=== PATIENT | male | born 1950 | race Hispanic/Latino ===

== ENCOUNTER 2016-11-17 21:40 | Inpatient (IN) | payer OTHER, MEDICARE ==
--- NOTE | 2016-11-17 21:48 | C.PDOC ---
History Of Present Illness Pt presents with a c.o of chest pain that began after dinner. Pt took train home and continued to have chest discomfort. Pt states pain is radiating down left arm. Pt denies any shortness of breath, nausea, vomiting,. No f/c Time Seen by Provider: 11/17/16 21:47 Chief Complaint (Nursing): Chest Pain History Per: Patient History/Exam Limitations: no limitations Onset/Duration Of Symptoms: Hrs Current Symptoms Are (Timing): Still Present Context: Other Severity: Moderate Pain Scale Rating Of: 4 Quality: Dull, Aching, Tightness Associated Symptoms: denies: Nausea, Other (Shortness of breath. Nausea. Vomiting) Exacerbating Factors: Exertion Alleviating Factors: None Recent travel outside of the [place]: No Additional History Per: Patient Past Medical History Reviewed: Historical Data, Nursing Documentation, Vital Signs Vital Signs: Last Vital Signs Temp 98 F 11/17/16 21:44 Pulse 76 11/17/16 23:43 Resp 16 11/17/16 23:43 BP 140/94 H 11/17/16 23:43 Pulse Ox 99 11/17/16 23:43 - Medical History PMH: HTN Family History: States: No Known Family Hx Review Of Systems Constitutional: Negative for: Fever, Chills ENT: Negative for: Mouth Swelling Cardiovascular: Positive for: Chest Pain (Radiating down left arm) Respiratory: Negative for: Shortness of Breath Gastrointestinal: Negative for: Nausea, Vomiting Musculoskeletal: Negative for: Back Pain Skin: Negative for: Rash, Lesions, Jaundice, Bruising Neurological: Negative for: Weakness Psych: Negative for: Anxiety Physical Exam - Physical Exam Appears: Non-toxic, No Acute Distress Skin: Warm, Dry Head: Normacephalic Eye(s): bilateral: Normal Inspection Oral Mucosa: Moist Neck: Supple Chest: Symmetrical, No Tenderness, Other (4/10 pain. ) Cardiovascular: Rhythm Regular Respiratory: No Rales, No Rhonchi, No Wheezing Gastrointestinal/Abdominal: Soft, No Tenderness, No Distention Back: Normal Inspection Extremity: Normal ROM Extremity: Bilateral: Atraumatic, Normal Color And Temperature Neurological/Psych: Oriented x3, Normal Speech, Normal Cognition Gait: Steady ED Course And Treatment - Laboratory Results Result Diagrams: 11/17/16 22:01 11/17/16 22:01 ECG Rhythm: Sinus Rhythm (85), 1st Degree HB, R BBB, Nonspecific Changes O2 Sat by Pulse Oximetry: 98 Pulse Ox Interpretation: Normal - Radiology CXR: Interpreted by Me, Viewed By Me CXR Interpretation: No: Infiltrates, Fracture, Pnemothorax Progress Note: cardiac work up , asa. 11:13 PM Pt with more chest pain. repeating ekg -. nsr 73 bpm ac anterolat mi. spoke with dr matthew tellez heart activated Critical Care Time - Critical Care Note Total Time (in mins): 47 Documented critical care: time excludes all time spent performing seperately billable procedures. Disposition Discussed With Dr.: Julito Huggins Comment: accepted the pt on his service and took over the care at 10:46 PM Doctor Will See Patient In The: Hospital Counseled Patient/Family Regarding: Studies Performed, Diagnosis - Disposition Disposition: HOSPITALIZED Disposition Time: 21:48 Condition: GUARDED - POA Present On Arrival: Poor Glycemic Control - Clinical Impression Clinical Impression: Chest pain, Acute myocardial infarction - Scribe Statement The provider has reviewed the documentation as recorded by the Scribe Magnus Padilla All medical record entries made by the Lichaibe were at my direction and personally dictated by me. I have reviewed the chart and agree that the record accurately reflects my personal performance of the history, physical exam, medical decision making, and the department course for this patient. I have also personally directed, reviewed, and agree with the discharge instructions and disposition. Decision To Admit - Pt Status Changed To: Hospital Disposition Of: Inpatient - Admit Certification Admit to Inpatient:: After my assessment, the patient will require hospitalization for at least two midnights. This is because of the severity of symptoms shown, intensity of services needed, and/or the medical risk in this patient being treated as an outpatient. - InPatient: Physician Admission Certification: I certify that this patient requires 2 or more midnights of care for the following reason:: After my assessment, the patient will require hospitalization for at least two midnights. This is because of the severity of symptoms shown, intensity of services needed, and/or the medical risk in this patient being treated as an outpatient. - . Bed Request Type: Telemetry Admitting Physician: Julito Huggins Patient Diagnosis: Chest pain, Acute myocardial infarction
[2016-11-17] MEDS ORDERED: Aspirin 325 mg EC Tablets PO STA (21:57)
[2016-11-17 22:07] LABS: BASO # 0.1 K/uL (0.0-0.2); BASO % 0.8 % (0.0-2.0); EOS # 0.1 K/uL (0.0-0.7); EOS % 1.3 % (0.0-4.0); HEMATOCRIT 42.9 % (35.0-51.0); LYMPH # 2.1 K/uL (1.0-4.3); LYMPH % 28.9 % (20.0-40.0); MEAN CELL VOLUME 83.4 fL (80.0-94.0); MEAN CORPUSCULAR HEMOGLOBIN 28.6 pg (27.0-31.0); MEAN CORPUSCULAR HGB CONC 34.3 g/dL (33.0-37.0); MEAN PLATELET VOLUME 7.3 fL (7.2-11.7); MONO # 0.8 K/uL (0.0-0.8); MONO % 10.6 % (0.0-10.0); NRBC % 0.1 % (0.0-2.0); RED CELL DISTRIBUTION WIDTH 13.6 % (11.5-14.5); WHITE BLOOD COUNT 7.1 K/uL (4.8-10.8)
[2016-11-17 22:15] LABS: CHLORIDE 98 mmol/L (98-107); SODIUM 141 mmol/L (132-148)
[2016-11-17 22:16] LABS: INR 1.1; POTASSIUM 3.8 mmol/L (3.6-5.2)
[2016-11-17 22:18] LABS: ALB/GLOB RATIO 1.3 (1.0-2.1); ALKALINE PHOSPHATASE 82 U/L (38-126); ALT/SGPT 48 U/L (21-72); AST/SGOT 45 U/L (17-59); BILIRUBIN,TOTAL 0.7 mg/dL (0.2-1.3); BLOOD UREA NITROGEN 20 mg/dL (9-20); CARBON DIOXIDE 25 mmol/L (22-30); GFR AFRICAN-AMERICAN > 60; GLUCOSE,RANDOM 187 mg/dL (75-110); TOTAL PROTEIN 7.9 g/dL (6.3-8.3)
[2016-11-17 22:19] LABS: CALCIUM 9.1 mg/dl (8.6-10.4)
[2016-11-17] MEDS ORDERED: Nitroglycerin 2% Ointment Foilpak UD TOP STA (22:49)
[2016-11-17] MEDS ORDERED: Morphine 4 MG/ML VIAL ONE (22:54)
[2016-11-17] MEDS ORDERED: Nitroglycerin 2% Ointment Foilpak UD TOP ONE (22:54)
[2016-11-17] MEDS ORDERED: Sodium Chloride 0.9% 1,000 ML ONE (23:06)
--- NOTE | 2016-11-17 23:16 | CP.PCM.HP ---
Past Patient History - Past Social History Smoking Status: Never Smoked - CARDIAC Hx Hypertension: Yes - RENAL Hx Kidney Stones: Yes - GASTROINTESTINAL Hx Fatty Liver Disease: Yes Other/Comment: fatty spleen - PSYCHIATRIC Hx Substance Use: No - SURGICAL HISTORY Hx Cholecystectomy: Yes Meds Allergies/Adverse Reactions: Allergies Allergy/AdvReac Type Severity Reaction Status Date / Time No Known Allergies Allergy Unverified 11/17/16 21:55 Results - Vital Signs Recent Vital Signs: Last Vital Signs Temp 98 F 11/17/16 21:44 Pulse 77 11/17/16 23:08 Resp 16 11/17/16 23:08 BP 148/95 H 11/17/16 23:08 Pulse Ox 92 L 11/17/16 23:08 - Labs Result Diagrams: 11/17/16 22:01 11/17/16 22:01
[2016-11-17] MEDS ORDERED: Heparin25000 units/250ml 1/2NS 250 ML IV PRN (23:25)
[2016-11-17] MEDS ORDERED: Iodixanol 320 mg/ml 150 ml Bottle IV ONE (23:52)
[2016-11-18] MEDS ORDERED: Midazolam 2 MG/2 ML VIAL ONE (00:06)
--- NOTE | 2016-11-18 00:51 | CP.PCM.CON ---
History of Present Illness - History of Present Illness History of Present Illness: Patient is a 66 year old male with a history of HTN, DM who presents with chest pain. The patient developed diaphoresis one day prior to admission. He was out to dinner with friends and developed chest pressure. He described substernal discomfort, and was noted to have dyspnea. He took the [employer] train to [place], and developed worsening chest pressure. He was originally brought to [facility] ER, and EKG showed evidence of lateral ischemia but no ST segment elevation. At 11:13 pm, the patient developed nausea and repeat EKG showed ST segment elevation in the anterior leads. Code heart was activated. Review of Systems - Constitutional Constitutional: absent: As Per HPI, Anorexia, Chills, Daytime Sleepiness, Excessive Sweating, Fatigue, Fever, Frequent Falls, Headache, Increased Appetite , Lethargy, Malaise, Night Sweats, Snoring, Sleep Apnea, Weight Gain, Weight Loss, Weakness, Other - EENT Eyes: absent: As Per HPI, Blind Spots, Blurred Vision, Change in Vision, Decreased Night Vision, Diplopia, Discharge, Dry Eye, Exophthalmos, Floaters, Irritation, Itchy Eyes, Loss of Peripheral Vision, Pain, Photophobia, Requires Corrective Lenses, Sees Flashes, Spots in Vision, Tunnel Vision, Other Visual Disturbances, Loss of Vision, Other Nose/Mouth/Throat: absent: As Per HPI, Epistaxis, Nasal Congestion, Nasal Discharge, Nasal Obstruction, Nasal Trauma, Nose Pain, Post Nasal Drip, Sinus Pain, Sinus Pressure, Bleeding Gums, Change in Voice, Dental Pain, Dry Mouth, Dysphagia, Halitosis, Hoarsness, Lip Swelling, Mouth Lesions, Mouth Pain, Odynophagia, Sore Throat, Throat Swelling, Tongue Swelling, Facial Pain, Neck Pain, Neck Mass, Other - Cardiovascular Cardiovascular: Chest Pain, Chest Pain at Rest, Dyspnea, Pain Radiating to Arm/ Neck/Jaw - Respiratory Respiratory: Dyspnea - Gastrointestinal Gastrointestinal: absent: As Per HPI, Abdominal Pain, Belching, Bloating, Change in Bowel Habits, Change in Stool Character, Coffee Ground Emesis, Constipation, Cramping, Diarrhea, Dyspepsia, Dysphagia, Early Satiety, Excessive Flatus, Fecal Incontinence, Heartburn, Hematemesis, Hematochezia, Loose Stools, Melena, Nausea, Odynophagia, Temesmus, Vomiting, Other - Genitourinary Genitourinary: absent: As Per HPI, Change in Urinary Stream, Difficulty Urinating, Dysuria, Flank Pain, Hematuria, Pyuria, Nocturia, Urinary Incontinence, Urinary Frequency, Urinary Hesitance, Urinary Urgency, Voiding Freq/Small Amts, Freq UTI, Hx Renal/Bladder Calculi, Hx /Renal Surgery, Bladder Distension, Other - Musculoskeletal Musculoskeletal: absent: As Per HPI, Abnormal Gait, Arthralgias, Atrophy, Back Pain, Deformity, Joint Swelling, Limited Range of Motion, Loss of Height, Muscle Cramps, Muscle Weakness, Myalgias, Neck Pain, Numbness, Radiating Pain into Limb, Stiffness, Tingling, Other - Integumentary Integumentary: absent: As Per HPI, Acne, Alopecia, Bleeding Lesions, Change in Hair, Change in Nails, Change in Pigmentation, Changing Lesions, Dry Skin, Erythema, Furuncle, Hirsutism, Lesions, New Lesions, Non-Healing Lesions, Photosensitivity, Pruritus, Rash, Skin Pain, Skin Ulcer, Sores, Striae, Swelling , Unusual Bruising, Wounds, Jaundice, Other - Neurological Neurological: absent: As Per HPI, Abnormal Gait, Abnormal Hearing, Abnormal Movements, Abnormal Speech, Behavioral Changes, Burning Sensations, Confusion, Convulsions, Disequilibrium, Dizziness, Numbness, Focal Weakness, Frequent Falls , Headaches, Lack of Coordination, Loss of Vision, Memory Loss, Paresthesias, Radicular Pain, Restless Legs, Sensory Deficit, Syncope, Tingling, Tremor, Vertigo, Weakness, Other Visual Disturbances, Other - Psychiatric Psychiatric: absent: As Per HPI, Abnormal Sleep Pattern, Anhedonia, Anxiety, Auditory Hallucinations, Behavioral Changes, Change in Appetite, Change in Libido, Confusion, Depression, Difficulty Concentrating, Hallucinations, Homicidal Ideation, Hopelessness, Irritability, Memory Loss, Mood Swings, Panic Attacks, Paranoia, Suicidal Ideation, Visual Hallucinations, Tactile Hallucinations, Other - Endocrine Endocrine: absent: As Per HPI, Change in Body Appearance, Change in Libido, Cold Intolorance, Deepening of Voice, Excessive Sweating, Fatigue, Flushing, Heat Intolorance, Increase in Ring/Shoe/Hat Size, Palpitations, Polydipsia, Polyphagia, Polyuria, Other - Hematologic/Lymphatic Hematologic: absent: As Per HPI, Easy Bleeding, Easy Bruising, Lymphadenopathy, Other Past Patient History - Past Social History Smoking Status: Never Smoked - CARDIAC Hx Hypertension: Yes - RENAL Hx Kidney Stones: Yes - GASTROINTESTINAL Hx Fatty Liver Disease: Yes Other/Comment: fatty spleen - PSYCHIATRIC Hx Substance Use: No - SURGICAL HISTORY Hx Cholecystectomy: Yes Meds Allergies/Adverse Reactions: Allergies Allergy/AdvReac Type Severity Reaction Status Date / Time No Known Allergies Allergy Unverified 11/17/16 21:55 - Medications Medications: Current Medications Clopidogrel Bisulfate (Plavix) 75 mg PO DAILY [facility] Enoxaparin Sodium (Lovenox) 40 mg SC DAILY [facility] Home Med (Aspirin) 81 mg PO DAILY [facility] Home Med (Irbesartan) 75 mg PO DAILY [facility] Heparin Sodium/Sodium Chloride (Heparin 65120 Units/250ml 1/2 Normal Saline) 250 mls @ 6 mls/hr IV .Q24H PRN; Protocol PRN Reason: PROTOCOL Last Admin: 11/18/16 00:13 Dose: 6 mls/hr Pantoprazole Sodium (Protonix Ec Tab) 40 mg PO DAILY [facility] Physical Exam - Constitutional Appears: Non-toxic - Head Exam Head Exam: NORMAL INSPECTION - Eye Exam Eye Exam: Normal appearance - ENT Exam ENT Exam: Mucous Membranes Moist - Neck Exam Neck exam: Positive for: Full Rom - Respiratory Exam Respiratory Exam: Clear to Auscultation Bilateral - Cardiovascular Exam Cardiovascular Exam: REGULAR RHYTHM - GI/Abdominal Exam GI & Abdominal Exam: Normal Bowel Sounds - Rectal Exam Rectal Exam: Deferred - Extremities Exam Extremities exam: Positive for: normal inspection - Back Exam Back exam: NORMAL INSPECTION - Neurological Exam Neurological exam: Alert - Psychiatric Exam Psychiatric exam: Normal Affect - Skin Skin Exam: Normal Color Results - Vital Signs Recent Vital Signs: Last Vital Signs Temp 98 F 11/17/16 21:44 Pulse 76 11/17/16 23:43 Resp 16 11/17/16 23:43 BP 140/94 H 11/17/16 23:43 Pulse Ox 98 11/18/16 00:08 - Labs Result Diagrams: 11/19/16 06:36 11/19/16 06:36 Labs: Laboratory Results - last 24 hr 11/17/16 23:49 Blood Type O POSITIVE Antibody Screen Negative - EKG Data EKG Interpreted by: Myself EKG shows normal: Sinus rhythm - EKG Data Interpretation: Acute Ischemia Assessment & Plan (1) Acute myocardial infarction Assessment and Plan: patient has EKG consistet with anterior wall myocardial infarction. The patient will need urgent cardiac catheteriaiton for further evaluation. Risks and benefits were discussed with the patient. He agrees to proceed. Status: Acute (2) HTN (hypertension) Assessment and Plan: will manage after the procedure. Status: Acute
--- NOTE | 2016-11-18 00:54 | PCM.SURG1 ---
Surgeon's Initial Post Op Note - Surgeon's Notes Surgeon: Kevin Barnes MD Bilingual Case Manager: Antonio Cordero Type of Anesthesia: IV Sedation Pre-Operative Diagnosis: AMI Operative Findings: mid LAD throbmbotic 99% occlusion CATHY II flow. LPDA 95% proximal. LVEF 50% Post-Operative Diagnosis: CAD Operation Performed: CHACHA mid LAD Specimen/Specimens Removed: none Estimated Blood Loss: EBL {In ML}: 0 Date of Surgery/Procedure: 11/17/16 Time of Surgery/Procedure: 23:55
[2016-11-18] MEDS ORDERED: Sodium Chloride 0.9% 1,000 ML IV SCH (01:00)
--- NOTE | 2016-11-18 01:31 | CP.PCM.CON ---
History of Present Illness - History of Present Illness History of Present Illness: 66 YOM with h/o HTN, had a chest pain , substernal after he had dinner at a [employer] restaurant. Pain continued when he was riding path train to [place] and got worst when he got out of train. Radiated to left arm, intensity ws 8-05/23, with some SOB. In ER had STEMI, cose heart was activated, Dr Herbert, senior systems developer took him to medical lab scientist and put a stent in LAD. Now pain free, slightly low BP but no sob, , feeling good now. Review of Systems - Review of Systems Systems not reviewed;Unavailable: Unstable Vital Signs - Constitutional Constitutional: As Per HPI - EENT Eyes: As Per HPI Nose/Mouth/Throat: As Per HPI - Cardiovascular Cardiovascular: Chest Pain, Dyspnea on Exertion - Respiratory Respiratory: Dyspnea - Gastrointestinal Gastrointestinal: As Per HPI Past Patient History - Past Social History Smoking Status: Never Smoked - CARDIAC Hx Cardiac Disorders: No Hx Hypertension: Yes - PULMONARY Hx Respiratory Disorders: No - NEUROLOGICAL Hx Neurological Disorder: No - HEENT Hx HEENT Problems: No - RENAL Hx Chronic Kidney Disease: No Hx Kidney Stones: Yes - GASTROINTESTINAL Hx Fatty Liver Disease: Yes Other/Comment: fatty spleen - PSYCHIATRIC Hx Substance Use: No - SURGICAL HISTORY Hx Cholecystectomy: Yes Meds Allergies/Adverse Reactions: Allergies Allergy/AdvReac Type Severity Reaction Status Date / Time No Known Allergies Allergy Unverified 11/17/16 21:55 - Medications Medications: Current Medications Aspirin (Ecotrin) 81 mg PO DAILY [facility] Docusate Sodium (Colace) 100 mg PO BID [facility] Sodium Chloride (Sodium Chloride 0.9%) 1,000 mls @ 75 mls/hr IV .[id number] [facility] Stop: 11/18/16 06:00 Metoprolol Tartrate (Lopressor) 12.5 mg PO BID [facility] Pantoprazole Sodium (Protonix Ec Tab) 40 mg PO DAILY [facility] Rosuvastatin Calcium (Crestor) 10 mg PO HS [facility] Ticagrelor (Brilinta) 90 mg PO BID [facility] Physical Exam - Head Exam Head Exam: ATRAUMATIC - Eye Exam Eye Exam: Normal appearance - ENT Exam ENT Exam: Mucous Membranes Moist - Neck Exam Neck exam: Positive for: Full Rom - Respiratory Exam Respiratory Exam: NORMAL BREATHING PATTERN - GI/Abdominal Exam GI & Abdominal Exam: Normal Bowel Sounds Results - Vital Signs Recent Vital Signs: Last Vital Signs Temp 98 F 11/17/16 21:44 Pulse 76 11/17/16 23:43 Resp 16 11/17/16 23:43 BP 140/94 H 11/17/16 23:43 Pulse Ox 98 11/18/16 00:56 - Labs Result Diagrams: 11/17/16 22:01 11/17/16 22:01 Labs: Laboratory Results - last 24 hr 11/17/16 23:49 Blood Type O POSITIVE Antibody Screen Negative - EKG Data EKG Interpreted by: Myself (ST seg elevation in ant-lateral leads) EKG shows normal: Sinus rhythm, ST-T waves - EKG Data When Compared to Previous EKG: Significant Changes Interpretation: Acute Ischemia Assessment & Plan - Assessment and Plan (Free Text) Assessment: STEMI HTN DM Plan: Admit to ICu Brilanta 90 mg po bid [facility] Metorolol 12.5 mg BID NS at 75 cc/h Lovenox 40 mg s/q daily Pantaprozole
--- NOTE | 2016-11-18 04:14 | CP.PCM.PN ---
Subjective - Date & Time of Evaluation Date of Evaluation: 11/18/16 Time of Evaluation: 04:05 - Subjective Subjective: House Doctor Note CODE HEART TIME: 11:19 PM Patient is a 66 M with medical history significant for hypertension and hyperlipidemia who presented to the emergency department with chest pain. Patient reports he was in [facility] and had just finished eating a large steak dinner when he suddenly developed sharp 8.5/10 intensity chest pain to his sternum which radiated to his left arm. Patient admits to associated nausea and diaphoresis. Initial blood pressure was elevated 160/100 and patient was given ASA 325 mg po, Morphine 6 mg IVP and nitro paste, which improved pressure to 140 /90. Troponin was positive 0.2350 and patient was admitted for NSTEMI as initial EKG did not show ST elevations. Later during emergency room course, patient had an episode of emesis and repeat EKG was significant for ST elevations to V2-6. Code heart was called. Patient was given Brilinta 180 mg po , Heparin 5,000 U bolus and started on Heparin drip. Patient has family history significant for cardiac disease as his mother from coronary complications and brother had coronary stents placed in his early 60s. Patient is a never smoker and denies alcohol and illicit drug use. Objective - Vital Signs/Intake and Output Vital Signs (last 24 hours): Temp Pulse Resp BP Pulse Ox 98.2 F 91 H 15 105/72 96 11/18/16 01:05 11/18/16 02:00 11/18/16 02:00 11/18/16 02:00 11/18/16 02:00 Intake and Output: 11/17/16 11/18/16 18:59 06:59 Intake Total 255 Output Total 0 Balance 255 - Medications Medications: Current Medications Aspirin (Ecotrin) 81 mg PO DAILY [facility] Docusate Sodium (Colace) 100 mg PO BID [facility] Enoxaparin Sodium (Lovenox) 40 mg SC DAILY [facility] Sodium Chloride (Sodium Chloride 0.9%) 1,000 mls @ 75 mls/hr IV .[id number] [facility] Stop: 11/18/16 06:00 Last Admin: 11/18/16 01:30 Dose: 75 mls/hr Metoprolol Tartrate (Lopressor) 12.5 mg PO BID [facility] Pantoprazole Sodium (Protonix Ec Tab) 40 mg PO DAILY [facility] Rosuvastatin Calcium (Crestor) 10 mg PO HS [facility] Ticagrelor (Brilinta) 90 mg PO BID [facility] - Labs Labs: PT 12.0 SECONDS (9.7-12.2) 11/17/16 22:01 INR 1.1 11/17/16 22:01 APTT 30 SECONDS (21-34) 11/17/16 22:01 - Constitutional Appears: No Acute Distress - Head Exam Head Exam: ATRAUMATIC, NORMAL INSPECTION, NORMOCEPHALIC - Eye Exam Eye Exam: EOMI, Normal appearance, PERRL - ENT Exam ENT Exam: Mucous Membranes Moist - Respiratory Exam Respiratory Exam: Clear to Ausculation Bilateral, NORMAL BREATHING PATTERN. absent: Rales, Rhonchi, Wheezes - Cardiovascular Exam Cardiovascular Exam: +S1, +S2. absent: Tachycardia - GI/Abdominal Exam GI & Abdominal Exam: Soft, Normal Bowel Sounds. absent: Distended, Guarding, Tenderness - Extremities Exam Extremities Exam: Normal Inspection. absent: Pedal Edema, Tenderness - Neurological Exam Neurological Exam: Alert, Awake, Oriented x3 - Psychiatric Exam Psychiatric exam: Normal Affect, Normal Mood - Skin Skin Exam: Intact, Normal Color
[2016-11-18 06:39] LABS: BASO # 0.1 K/uL (0.0-0.2); BASO % 0.8 % (0.0-2.0); EOS % 0.1 % (0.0-4.0); HEMATOCRIT 41.1 % (35.0-51.0); LYMPH # 1.4 K/uL (1.0-4.3); LYMPH % 13.5 % (20.0-40.0); MEAN CELL VOLUME 84.7 fL (80.0-94.0); MEAN CORPUSCULAR HEMOGLOBIN 28.6 pg (27.0-31.0); MEAN CORPUSCULAR HGB CONC 33.8 g/dL (33.0-37.0); MEAN PLATELET VOLUME 7.5 fL (7.2-11.7); MONO # 0.8 K/uL (0.0-0.8); MONO % 7.6 % (0.0-10.0); RED CELL DISTRIBUTION WIDTH 13.7 % (11.5-14.5); WHITE BLOOD COUNT 10.2 K/uL (4.8-10.8)
[2016-11-18 06:48] LABS: CHLORIDE 97 mmol/L (98-107); SODIUM 136 mmol/L (132-148)
[2016-11-18 06:49] LABS: POTASSIUM 4.2 mmol/L (3.6-5.2)
[2016-11-18 06:51] LABS: ALB/GLOB RATIO 1.4 (1.0-2.1); ALKALINE PHOSPHATASE 79 U/L (38-126); AST/SGOT 300 U/L (17-59); BILIRUBIN,TOTAL 0.7 mg/dL (0.2-1.3); BLOOD UREA NITROGEN 19 mg/dL (9-20); CARBON DIOXIDE 26 mmol/L (22-30); GFR AFRICAN-AMERICAN > 60; TOTAL PROTEIN 6.7 g/dL (6.3-8.3)
[2016-11-18 06:52] LABS: ALT/SGPT 72 U/L (21-72); CALCIUM 8.3 mg/dl (8.6-10.4); GLUCOSE,RANDOM 212 mg/dL (75-110)
[2016-11-18] MEDS ORDERED: IRBESARTAN 75 MG PO SCH (10:00)
[2016-11-18] MEDS ORDERED: Enoxaparin 40 mg Syringe SC SCH ×2 (10:00)
[2016-11-18] MEDS: Pantoprazole 40 mg EC Tab PO SCH (10:42)
--- NOTE | 2016-11-18 11:08 | RAD ---
PROCEDURE: CHEST RADIOGRAPH, 1 VIEW HISTORY: chest pain COMPARISON: None available. FINDINGS: LUNGS: Clear. PLEURA: No pneumothorax or pleural fluid seen. CARDIOVASCULAR: Normal. OSSEOUS STRUCTURES: The osseous structures demonstrate degenerative changes. VISUALIZED UPPER ABDOMEN: Upper abdomen is suboptimally evaluated. OTHER FINDINGS: None. IMPRESSION: No focal airspace opacity.
--- NOTE | 2016-11-18 17:39 | CP.PCM.PN ---
Subjective - Date & Time of Evaluation Date of Evaluation: 11/18/16 Time of Evaluation: 16:45 - Subjective Subjective: patient denies chest pain. He feels better. Objective - Vital Signs/Intake and Output Vital Signs (last 24 hours): Temp Pulse Resp BP Pulse Ox 97.4 F L 80 16 124/77 97 11/18/16 12:00 11/18/16 15:00 11/18/16 15:00 11/18/16 14:59 11/18/16 15:00 Intake and Output: 11/18/16 11/18/16 06:59 18:59 Intake Total 255 275 Output Total 0 300 Balance 255 -25 - Medications Medications: Current Medications Aspirin (Ecotrin) 81 mg PO DAILY [facility] Last Admin: 11/18/16 10:42 Dose: 81 mg Docusate Sodium (Colace) 100 mg PO BID [facility] Last Admin: 11/18/16 10:43 Dose: 100 mg Enoxaparin Sodium (Lovenox) 40 mg SC DAILY [facility] Last Admin: 11/18/16 10:41 Dose: 40 mg Metoprolol Tartrate (Lopressor) 12.5 mg PO BID [facility] Last Admin: 11/18/16 10:42 Dose: 12.5 mg Pantoprazole Sodium (Protonix Ec Tab) 40 mg PO DAILY [facility] Last Admin: 11/18/16 10:42 Dose: 40 mg Rosuvastatin Calcium (Crestor) 10 mg PO [facility] Ticagrelor (Brilinta) 90 mg PO BID [facility] Last Admin: 11/18/16 10:43 Dose: 90 mg - Labs Labs: 11/18/16 06:32 11/18/16 06:32 PT 12.0 SECONDS (9.7-12.2) 11/17/16 22:01 INR 1.1 11/17/16 22:01 APTT 30 SECONDS (21-34) 11/17/16 22:01 - Constitutional Appears: Non-toxic - Head Exam Head Exam: NORMAL INSPECTION - Eye Exam Eye Exam: Normal appearance - ENT Exam ENT Exam: Mucous Membranes Moist - Neck Exam Neck Exam: Full ROM - Respiratory Exam Respiratory Exam: NORMAL BREATHING PATTERN - Cardiovascular Exam Cardiovascular Exam: REGULAR RHYTHM - GI/Abdominal Exam GI & Abdominal Exam: Normal Bowel Sounds - Rectal Exam Rectal Exam: Deferred - Extremities Exam Extremities Exam: absent: Pedal Edema - Back Exam Back Exam: NORMAL INSPECTION - Neurological Exam Neurological Exam: Alert - Psychiatric Exam Psychiatric exam: Normal Affect - Skin Skin Exam: Normal Color Assessment and Plan (1) Acute myocardial infarction Assessment & Plan: s/p stent LAD. doing well continue ASA/Brilinta. Patient has critical stenosis of the LPDA. will schedule elective intervention in the future. Status: Acute (2) HTN (hypertension) Assessment & Plan: betablocker Status: Acute (3) Ischemic cardiomyopathy Assessment & Plan: I reviewed the echocardiogram. There is severe hypokinesis of the anterior wall of the left ventricle. continue current medications. will reevalaute LV function in the future. Status: Acute (4) Hypercholesterolemia Assessment & Plan: statin therapy. Status: Acute
--- NOTE | 2016-11-18 18:28 | CP.PCM.PN ---
Subjective - Date & Time of Evaluation Date of Evaluation: 11/18/16 Time of Evaluation: 12:20 - Subjective Subjective: clinically same Objective - Vital Signs/Intake and Output Vital Signs (last 24 hours): Temp Pulse Resp BP Pulse Ox 97.4 F L 80 16 124/77 97 11/18/16 12:00 11/18/16 15:00 11/18/16 15:00 11/18/16 14:59 11/18/16 15:00 Intake and Output: 11/18/16 11/18/16 06:59 18:59 Intake Total 255 275 Output Total 0 300 Balance 255 -25 - Medications Medications: Current Medications Aspirin (Ecotrin) 81 mg PO DAILY [facility] Last Admin: 11/18/16 10:42 Dose: 81 mg Docusate Sodium (Colace) 100 mg PO BID [facility] Last Admin: 11/18/16 17:54 Dose: 100 mg Enoxaparin Sodium (Lovenox) 40 mg SC DAILY [facility] Last Admin: 11/18/16 10:41 Dose: 40 mg Metoprolol Tartrate (Lopressor) 12.5 mg PO BID [facility] Last Admin: 11/18/16 17:53 Dose: 12.5 mg Pantoprazole Sodium (Protonix Ec Tab) 40 mg PO DAILY [facility] Last Admin: 11/18/16 10:42 Dose: 40 mg Rosuvastatin Calcium (Crestor) 10 mg PO [facility] Ticagrelor (Brilinta) 90 mg PO BID [facility] Last Admin: 11/18/16 17:51 Dose: 90 mg - Labs Labs: 11/18/16 06:32 11/18/16 06:32 PT 12.0 SECONDS (9.7-12.2) 11/17/16 22:01 INR 1.1 11/17/16 22:01 APTT 30 SECONDS (21-34) 11/17/16 22:01 - Constitutional Appears: Well - Head Exam Head Exam: ATRAUMATIC, NORMAL INSPECTION, NORMOCEPHALIC - Eye Exam Eye Exam: EOMI, Normal appearance, PERRL Pupil Exam: NORMAL ACCOMODATION, PERRL - ENT Exam ENT Exam: Mucous Membranes Moist, Normal Exam - Neck Exam Neck Exam: Full ROM, Normal Inspection. absent: Lymphadenopathy - Cardiovascular Exam Cardiovascular Exam: REGULAR RHYTHM, +S1, +S2 - GI/Abdominal Exam GI & Abdominal Exam: Distended, Soft - Rectal Exam Rectal Exam: Deferred
[2016-11-19 06:51] LABS: BASO % 0.4 % (0.0-2.0); EOS % 0.1 % (0.0-4.0); HEMATOCRIT 41.3 % (35.0-51.0); LYMPH # 1.4 K/uL (1.0-4.3); LYMPH % 12.6 % (20.0-40.0); MEAN CELL VOLUME 84.4 fL (80.0-94.0); MEAN CORPUSCULAR HEMOGLOBIN 28.7 pg (27.0-31.0); MEAN PLATELET VOLUME 7.7 fL (7.2-11.7); MONO # 1.1 K/uL (0.0-0.8); MONO % 9.9 % (0.0-10.0); RED CELL DISTRIBUTION WIDTH 13.7 % (11.5-14.5); WHITE BLOOD COUNT 11.2 K/uL (4.8-10.8)
[2016-11-19 06:59] LABS: CHLORIDE 101 mmol/L (98-107); SODIUM 137 mmol/L (132-148)
[2016-11-19 07:01] LABS: CARBON DIOXIDE 26 mmol/L (22-30); CHOLESTEROL 178 mg/dL (0-199); GFR AFRICAN-AMERICAN > 60
[2016-11-19 07:02] LABS: ALB/GLOB RATIO 1.1 (1.0-2.1); ALKALINE PHOSPHATASE 50 U/L (38-126); ALT/SGPT 71 U/L (21-72); AST/SGOT 186 U/L (17-59); BILIRUBIN,TOTAL 1.6 mg/dL (0.2-1.3); BLOOD UREA NITROGEN 13 mg/dL (9-20); CALCIUM 7.8 mg/dl (8.6-10.4); GLUCOSE,RANDOM 156 mg/dL (75-110); PHOSPHOROUS 2.2 mg/dL (2.5-4.5); TOTAL PROTEIN 6.6 g/dL (6.3-8.3)
[2016-11-19 07:03] LABS: MAGNESIUM 1.8 mg/dL (1.6-2.3)
[2016-11-19] MEDS ORDERED: Midazolam 2 MG/2 ML VIAL ONE ×2 (09:11→17:39)
[2016-11-19] MEDS ORDERED: Enoxaparin 40 mg Syringe SC SCH (09:22)
[2016-11-19] MEDS: Pantoprazole 40 mg EC Tab PO SCH (10:00)
[2016-11-19] MEDS: Enoxaparin 120 mg Syringe SC SCH ×2 (12:18→21:27)
--- NOTE | 2016-11-19 14:40 | CP.PCM.PN ---
Subjective - Date & Time of Evaluation Date of Evaluation: 11/19/16 Time of Evaluation: 12:00 - Subjective Subjective: clinically same Objective - Vital Signs/Intake and Output Vital Signs (last 24 hours): Temp Pulse Resp BP Pulse Ox 99 F 108 H 20 95/58 L 97 11/19/16 04:00 11/19/16 10:07 11/19/16 10:07 11/19/16 10:07 11/19/16 10:07 Intake and Output: 11/19/16 11/19/16 06:59 18:59 Intake Total 280 Output Total 300 Balance -20 - Medications Medications: Current Medications Aspirin (Ecotrin) 81 mg PO DAILY [facility] Last Admin: 11/19/16 10:00 Dose: 81 mg Docusate Sodium (Colace) 100 mg PO BID [facility] Last Admin: 11/19/16 10:00 Dose: 100 mg Enoxaparin Sodium (Lovenox) 110 mg SC Q12 [facility] Last Admin: 11/19/16 12:18 Dose: 110 mg Amiodarone HCl 900 mg/ (Dextrose) 500 mls @ 16.66 mls/hr IV .Q24H WILY; 0.5 MG/ MIN PRN Reason: Protocol Stop: 11/20/16 10:00 Amiodarone HCl 900 mg/ (Dextrose) 500 mls @ 33.33 mls/hr IV .Q15H1M WILY; 1 MG/ MIN PRN Reason: Protocol Stop: 11/19/16 16:00 Last Admin: 11/19/16 10:07 Dose: 33.33 mls/hr Metoprolol Tartrate (Lopressor) 12.5 mg PO BID [facility] Last Admin: 11/19/16 10:10 Dose: Not Given Pantoprazole Sodium (Protonix Ec Tab) 40 mg PO DAILY [facility] Last Admin: 11/19/16 10:00 Dose: 40 mg Rosuvastatin Calcium (Crestor) 10 mg PO HS [facility] Last Admin: 11/18/16 21:55 Dose: 10 mg Ticagrelor (Brilinta) 90 mg PO BID [facility] Last Admin: 11/19/16 10:00 Dose: 90 mg - Labs Labs: 11/19/16 06:36 11/19/16 06:36 PT 12.0 SECONDS (9.7-12.2) 11/17/16 22:01 INR 1.1 11/17/16 22:01 APTT 30 SECONDS (21-34) 11/17/16 22:01 - Constitutional Appears: Well - Head Exam Head Exam: ATRAUMATIC, NORMAL INSPECTION, NORMOCEPHALIC - Eye Exam Eye Exam: EOMI, Normal appearance, PERRL Pupil Exam: NORMAL ACCOMODATION, PERRL - ENT Exam ENT Exam: Mucous Membranes Moist, Normal Exam - Neck Exam Neck Exam: Full ROM, Normal Inspection. absent: Lymphadenopathy - Respiratory Exam Respiratory Exam: Decreased Breath Sounds - Cardiovascular Exam Cardiovascular Exam: REGULAR RHYTHM, +S1, +S2 - GI/Abdominal Exam GI & Abdominal Exam: Soft, Diminished Bowel Sounds - Rectal Exam Rectal Exam: Deferred
--- NOTE | 2016-11-19 17:26 | CP.CCUPN ---
CCU Subjective - Physician Review Events Since Last Encounter (Free Text): 11/19/16 17:26 Patient is a 66 M with medical history significant for hypertension and hyperlipidemia who presented to the emergency department with chest pain. Patient reports he was in [facility] and had just finished eating a large steak dinner when he suddenly developed sharp 8.5/10 intensity chest pain to his sternum which radiated to his left arm. Patient admits to associated nausea and diaphoresis. Initial blood pressure was elevated 160/100 and patient was given ASA 325 mg po, Morphine 6 mg IVP and nitro paste, which improved pressure to 140 /90. Troponin was positive 0.2350 and patient was admitted for NSTEMI as initial EKG did not show ST elevations. Later during emergency room course, patient had an episode of emesis and repeat EKG was significant for ST elevations to V2-6. Code heart was called. s/p stent LAD, and critical stenosis of the LPDA. Patient went into ventricular tachycardia status post cardioversion 2 and started on amiodarone drip. CCU Objective - Vital Signs / Intake & Output Vital Signs (Last 4 hours): Last Vital Signs Temp 99 F 11/19/16 04:00 Pulse 114 H 11/19/16 17:44 Resp 20 11/19/16 17:44 BP 95/71 L 11/19/16 17:44 Pulse Ox 97 11/19/16 17:44 Intake and Output (Last 8hrs): Intake & Output 11/19/16 11/19/16 11/19/16 06:59 14:59 22:59 Weight 257 lb 7.999 oz - Physical Exam Head: Positive for: Atraumatic, Normocephalic Pupils: Positive for: PERRL Extroacular Muscles: Positive for: EOMI Mouth: Positive for: Moist Mucous Membranes Neck: Positive for: Normal Range of Motion Respiratory/Chest: Positive for: Clear to Auscultation Cardiovascular: Positive for: Irregular Rhythm Abdomen: Positive for: Normal Bowel Sounds Upper Extremity: Positive for: Normal Inspection Lower Extremity: Positive for: Normal Inspection Psychiatric: Positive for: Alert, Oriented x 3 - Medications Active Medications: Active Medications Generic Name Dose Route Start Last Admin Trade Name Freq PRN Reason Stop Dose Admin Aspirin 81 mg 11/18/16 10:00 11/19/16 10:00 Ecotrin PO 81 mg DAILY [facility] Administration Docusate Sodium 100 mg 11/18/16 10:00 11/19/16 10:00 Colace PO 100 mg BID [facility] Administration Enoxaparin Sodium 110 mg 11/19/16 10:00 11/19/16 12:18 Lovenox SC 110 mg Q12 [facility] Administration Amiodarone HCl 900 mg/ 500 mls @ 16.66 mls/hr 11/19/16 16:00 Dextrose IV 11/20/16 10:00 .Q24H WILY Protocol 0.5 MG/MIN Metoprolol Tartrate 12.5 mg 11/18/16 10:00 11/19/16 10:10 Lopressor PO Not Given BID WILY Pantoprazole Sodium 40 mg 11/18/16 10:00 11/19/16 10:00 Protonix Ec Tab PO 40 mg DAILY [facility] Administration Rosuvastatin Calcium 10 mg 11/18/16 22:00 11/18/16 21:55 Crestor PO 10 mg HS [facility]ILY Administration Ticagrelor 90 mg 11/18/16 10:00 11/19/16 10:00 Brilinta PO 90 mg BID [facility] Administration - Patient Studies Lab Studies: Microbiology Studies 11/18/16 09:00 MRSA Culture (Admit) - Final Naris MRSA NOT DETECTED Lab Studies 11/19/16 11/19/16 11/19/16 Range/Units 16:59 11:18 07:41 WBC (4.8-10.8) K/uL RBC (4.40-5.90) Mil/uL Hgb (12.0-18.0) g/dL Hct (35.0-51.0) % MCV (80.0-94.0) fL MCH (27.0-31.0) pg MCHC (33.0-37.0) g/dL RDW (11.5-14.5) % Plt Count (130-400) K/uL MPV (7.2-11.7) fL Neut % (Auto) (50.0-75.0) % Lymph % (Auto) (20.0-40.0) % Meade % (Auto) (0.0-10.0) % Eos % (Auto) (0.0-4.0) % Baso % (Auto) (0.0-2.0) % Neut # (1.8-7.0) K/uL Lymph # (1.0-4.3) K/uL Meade # (0.0-0.8) K/uL Eos # (0.0-0.7) K/uL Baso # (0.0-0.2) K/uL Sodium (132-148) mmol/L Potassium (3.6-5.2) mmol/L Chloride (98-107) mmol/L Carbon Dioxide (22-30) mmol/L Anion Gap (10-20) BUN (9-20) mg/dL Creatinine (0.8-1.5) MG/DL Est GFR ( Amer) Est GFR (Non-Af Amer) POC Glucose (mg/dL) 203 H 233 H 147 H (65-110) mg/dL Random Glucose (75-110) mg/dL Calcium (8.6-10.4) mg/dl Phosphorus (2.5-4.5) mg/dL Magnesium (1.6-2.3) mg/dL Total Bilirubin (0.2-1.3) mg/dL AST (17-59) U/L ALT (21-72) U/L Alkaline Phosphatase (38-126) U/L Total Protein (6.3-8.3) g/dL Albumin (3.5-5.0) g/dL Globulin (2.2-3.9) gm/dL Albumin/Globulin Ratio (1.0-2.1) Triglycerides (0-149) mg/dL Cholesterol (0-199) mg/dL LDL Cholesterol Direct (0-129) mg/dL HDL Cholesterol (30-70) mg/dL 11/19/16 11/18/16 Range/Units 06:36 21:46 WBC 11.2 H (4.8-10.8) K/uL RBC 4.89 (4.40-5.90) Mil/uL Hgb 14.0 (12.0-18.0) g/dL Hct 41.3 (35.0-51.0) % MCV 84.4 (80.0-94.0) fL MCH 28.7 (27.0-31.0) pg MCHC 34.0 (33.0-37.0) g/dL RDW 13.7 (11.5-14.5) % Plt Count 168 (130-400) K/uL MPV 7.7 (7.2-11.7) fL Neut % (Auto) 77.0 H (50.0-75.0) % Lymph % (Auto) 12.6 L (20.0-40.0) % Meade % (Auto) 9.9 (0.0-10.0) % Eos % (Auto) 0.1 (0.0-4.0) % Baso % (Auto) 0.4 (0.0-2.0) % Neut # 8.6 H (1.8-7.0) K/uL Lymph # 1.4 (1.0-4.3) K/uL Meade # 1.1 H (0.0-0.8) K/uL Eos # 0.0 (0.0-0.7) K/uL Baso # 0.0 (0.0-0.2) K/uL Sodium 137 (132-148) mmol/L Potassium 4.0 (3.6-5.2) mmol/L Chloride 101 (98-107) mmol/L Carbon Dioxide 26 (22-30) mmol/L Anion Gap 14 (10-20) BUN 13 (9-20) mg/dL Creatinine 0.9 (0.8-1.5) MG/DL Est GFR ( Amer) > 60 Est GFR (Non-Af Amer) > 60 POC Glucose (mg/dL) 169 H (65-110) mg/dL Random Glucose 156 H (75-110) mg/dL Calcium 7.8 L (8.6-10.4) mg/dl Phosphorus 2.2 L (2.5-4.5) mg/dL Magnesium 1.8 (1.6-2.3) mg/dL Total Bilirubin 1.6 H (0.2-1.3) mg/dL AST 186 H D (17-59) U/L ALT 71 (21-72) U/L Alkaline Phosphatase 50 (38-126) U/L Total Protein 6.6 (6.3-8.3) g/dL Albumin 3.4 L (3.5-5.0) g/dL Globulin 3.2 (2.2-3.9) gm/dL Albumin/Globulin Ratio 1.1 (1.0-2.1) Triglycerides 283 H (0-149) mg/dL Cholesterol 178 (0-199) mg/dL LDL Cholesterol Direct 108 (0-129) mg/dL HDL Cholesterol 31 (30-70) mg/dL Laboratory Results - last 24 hr 11/18/16 11/19/16 11/19/16 21:46 06:36 07:41 WBC 11.2 H RBC 4.89 Hgb 14.0 Hct 41.3 MCV 84.4 MCH 28.7 MCHC 34.0 RDW 13.7 Plt Count 168 MPV 7.7 Neut % (Auto) 77.0 H Lymph % (Auto) 12.6 L Meade % (Auto) 9.9 Eos % (Auto) 0.1 Baso % (Auto) 0.4 Neut # 8.6 H Lymph # 1.4 Meade # 1.1 H Eos # 0.0 Baso # 0.0 Sodium 137 Potassium 4.0 Chloride 101 Carbon Dioxide 26 Anion Gap 14 BUN 13 Creatinine 0.9 Est GFR ( Amer) > 60 Est GFR (Non-Af Amer) > 60 POC Glucose (mg/dL) 169 H 147 H Random Glucose 156 H Calcium 7.8 L Phosphorus 2.2 L Magnesium 1.8 Total Bilirubin 1.6 H AST 186 H D ALT 71 Alkaline Phosphatase 50 Total Protein 6.6 Albumin 3.4 L Globulin 3.2 Albumin/Globulin Ratio 1.1 Triglycerides 283 H Cholesterol 178 LDL Cholesterol Direct 108 HDL Cholesterol 31 11/19/16 11/19/16 11:18 16:59 WBC RBC Hgb Hct MCV MCH MCHC RDW Plt Count MPV Neut % (Auto) Lymph % (Auto) Meade % (Auto) Eos % (Auto) Baso % (Auto) Neut # Lymph # Meade # Eos # Baso # Sodium Potassium Chloride Carbon Dioxide Anion Gap BUN Creatinine Est GFR ( Amer) Est GFR (Non-Af Amer) POC Glucose (mg/dL) 233 H 203 H Random Glucose Calcium Phosphorus Magnesium Total Bilirubin AST ALT Alkaline Phosphatase Total Protein Albumin Globulin Albumin/Globulin Ratio Triglycerides Cholesterol LDL Cholesterol Direct HDL Cholesterol Fingerstick Blood Sugar Results: 169 Review of Systems - Review of Systems All systems: reviewed and no additional remarkable complaints except Critical Care Progress Note - Ventilator Checklist Head of Bed 30 Degrees: Yes - Nutrition Nutrition: Nutrition Category Date Time Status Heart Healthy Diet [DIET] Diets 03/17/17 Breakfast Active Assessment/Plan (1) Acute myocardial infarction Current Visit: Yes Status: Acute Comment: code Heart, status post stent placement LAD, Patient has critical stenosis of the LPDA. Dr Herbert will schedule elective intervention in the future Patient was started on amiodarone drip for ventricular tachycardia status post cardioversion 2 Continue anticoagulation Case discussed with cardiology (2) Ventricular tachycardia Current Visit: Yes Status: Acute
[2016-11-19] MEDS: Lidocaine 2 Grams in D5W 500 ML IV SCH (18:25)
--- NOTE | 2016-11-19 18:29 | CP.PCM.PN ---
Subjective - Date & Time of Evaluation Date of Evaluation: 11/19/16 Time of Evaluation: 14:30 - Subjective Subjective: patient developed ventricular tachycardia today. s/p defibrillation, started on amiodarone. denies chest pain Objective - Vital Signs/Intake and Output Vital Signs (last 24 hours): Temp Pulse Resp BP Pulse Ox 99 F 114 H 20 95/71 L 97 11/19/16 04:00 11/19/16 17:44 11/19/16 17:44 11/19/16 17:44 11/19/16 17:44 Intake and Output: 11/19/16 11/19/16 06:59 18:59 Intake Total 280 Output Total 300 Balance -20 - Medications Medications: Current Medications Aspirin (Ecotrin) 81 mg PO DAILY [facility] Last Admin: 11/19/16 10:00 Dose: 81 mg Docusate Sodium (Colace) 100 mg PO BID [facility] Last Admin: 11/19/16 17:34 Dose: 100 mg Enoxaparin Sodium (Lovenox) 110 mg SC Q12 [facility] Last Admin: 11/19/16 12:18 Dose: 110 mg Amiodarone HCl 900 mg/ (Dextrose) 500 mls @ 16.66 mls/hr IV .Q24H WILY; 0.5 MG/ MIN PRN Reason: Protocol Stop: 11/20/16 10:00 Last Admin: 11/19/16 17:44 Dose: 16.66 mls/hr Lidocaine HCl/Dextrose (Lidocaine 2 Grams In D5w) 500 mls @ 30 mls/hr IV .[id number] WILY PRN Reason: 2 MG/MIN Amiodarone HCl 900 mg/ (Dextrose) 500 mls @ 33.33 mls/hr IV .Q15H1M ONE PRN Reason: 1 MG/MIN Stop: 11/20/16 09:10 Metoprolol Tartrate (Lopressor) 12.5 mg PO BID [facility] Last Admin: 11/19/16 17:35 Dose: 12.5 mg Pantoprazole Sodium (Protonix Ec Tab) 40 mg PO DAILY [facility] Last Admin: 11/19/16 10:00 Dose: 40 mg Rosuvastatin Calcium (Crestor) 10 mg PO HS [facility] Last Admin: 11/18/16 21:55 Dose: 10 mg Ticagrelor (Brilinta) 90 mg PO BID [facility] Last Admin: 11/19/16 17:34 Dose: 90 mg - Labs Labs: 11/19/16 06:36 11/19/16 06:36 PT 12.0 SECONDS (9.7-12.2) 11/17/16 22:01 INR 1.1 11/17/16 22:01 APTT 30 SECONDS (21-34) 11/17/16 22:01 - Constitutional Appears: Non-toxic - Head Exam Head Exam: NORMAL INSPECTION - Eye Exam Eye Exam: Normal appearance - ENT Exam ENT Exam: Mucous Membranes Moist - Neck Exam Neck Exam: Full ROM - Respiratory Exam Respiratory Exam: NORMAL BREATHING PATTERN - Cardiovascular Exam Cardiovascular Exam: REGULAR RHYTHM - GI/Abdominal Exam GI & Abdominal Exam: Normal Bowel Sounds - Rectal Exam Rectal Exam: NORMAL INSPECTION - Back Exam Back Exam: NORMAL INSPECTION - Neurological Exam Neurological Exam: Alert - Psychiatric Exam Psychiatric exam: Normal Affect - Skin Skin Exam: Normal Color Assessment and Plan (1) Acute myocardial infarction Assessment & Plan: s/p PCI LAD. continue ASA 81 mg daily, Brilinta 90 mg BID. Status: Acute (2) HTN (hypertension) Assessment & Plan: continue betablocker Status: Acute (3) Ventricular tachycardia Assessment & Plan: will continue amiodarone drip. If recurrent VT, luana need amiodoarone. The echocardiogram reveals scar of severe hypokinesis of the anterior wall. There is likely scar of the anterior wall causing reentrant arrhythmia. The patient also has severe stenosis of the LPDA. This will likely require intervention as an inpatient given arrhythmia. Status: Acute
--- NOTE | 2016-11-20 00:54 | CARD ---
APPROVED REPORT <Conclusion> Normal sinus rhythm Left axis deviation Low voltage QRS Cannot rule out Anteroseptal infarct, age undetermined Abnormal ECG
[2016-11-20] MEDS ORDERED: Sodium Chloride 0.9% 1,000 ML IV ONE (01:43)
[2016-11-20] MEDS ORDERED: Sodium Chloride 0.9% 500 ML IV ONE (03:17)
[2016-11-20 06:42] LABS: BASO # 0.1 K/uL (0.0-0.2); BASO % 0.6 % (0.0-2.0); EOS % 0.2 % (0.0-4.0); HEMATOCRIT 40.4 % (35.0-51.0); LYMPH # 1.5 K/uL (1.0-4.3); MEAN CELL VOLUME 83.7 fL (80.0-94.0); MEAN CORPUSCULAR HEMOGLOBIN 28.7 pg (27.0-31.0); MEAN CORPUSCULAR HGB CONC 34.3 g/dL (33.0-37.0); MEAN PLATELET VOLUME 7.7 fL (7.2-11.7); MONO % 10.3 % (0.0-10.0); NRBC % 0.1 % (0.0-2.0); RED CELL DISTRIBUTION WIDTH 13.7 % (11.5-14.5); WHITE BLOOD COUNT 10.1 K/uL (4.8-10.8)
[2016-11-20 06:44] LABS: CHLORIDE 99 mmol/L (98-107); POTASSIUM 3.9 mmol/L (3.6-5.2); SODIUM 136 mmol/L (132-148)
[2016-11-20 06:46] LABS: AST/SGOT 96 U/L (17-59); BILIRUBIN,TOTAL 1.6 mg/dL (0.2-1.3); CARBON DIOXIDE 26 mmol/L (22-30); GFR AFRICAN-AMERICAN > 60
[2016-11-20 06:47] LABS: ALB/GLOB RATIO 1.1 (1.0-2.1); ALKALINE PHOSPHATASE 51 U/L (38-126); ALT/SGPT 57 U/L (21-72); BLOOD UREA NITROGEN 19 mg/dL (9-20); CALCIUM 7.8 mg/dl (8.6-10.4); GLUCOSE,RANDOM 159 mg/dL (75-110); PHOSPHOROUS 2.6 mg/dL (2.5-4.5)
[2016-11-20 06:48] LABS: MAGNESIUM 2.2 mg/dL (1.6-2.3)
--- NOTE | 2016-11-20 09:06 | CARD ---
APPROVED REPORT EKG Measurement Heart [id number] MI 208P20 [id number] <Conclusion> Normal sinus rhythm Low voltage QRS Anteroseptal infarct, possibly acute Lateral injury pattern ACUTE PR / STEMI Abnormal ECG
--- NOTE | 2016-11-20 09:07 | CARD ---
APPROVED REPORT EKG Measurement Heart [id number] RI 214P41 [id number] <Conclusion> Sinus rhythm with 1st degree AV block Septal infarct, age undetermined Abnormal ECG
[2016-11-20] MEDS: Enoxaparin 120 mg Syringe SC SCH ×2 (09:41→22:09)
[2016-11-20] MEDS: Pantoprazole 40 mg EC Tab PO SCH (09:41)
--- NOTE | 2016-11-20 11:02 | CP.PCM.PN ---
Subjective - Date & Time of Evaluation Date of Evaluation: 11/20/16 Objective - Vital Signs/Intake and Output Vital Signs (last 24 hours): Temp Pulse Resp BP Pulse Ox 99.7 F H 81 22 100/55 L 96 11/20/16 08:00 11/20/16 10:00 11/20/16 10:00 11/20/16 10:00 11/20/16 10:00 Intake and Output: 11/20/16 11/20/16 06:59 18:59 Intake Total 1102.9 493.2 Output Total 1350 200 Balance -247.1 293.2 - Medications Medications: Current Medications Aspirin (Ecotrin) 81 mg PO DAILY [facility] Last Admin: 11/20/16 09:41 Dose: 81 mg Docusate Sodium (Colace) 100 mg PO BID [facility] Last Admin: 11/20/16 09:41 Dose: 100 mg Enoxaparin Sodium (Lovenox) 110 mg SC Q12 [facility] Last Admin: 11/20/16 09:41 Dose: 110 mg Lidocaine HCl/Dextrose (Lidocaine 2 Grams In D5w) 500 mls @ 30 mls/hr IV .[id number] WILY PRN Reason: 2 MG/MIN Last Admin: 11/19/16 18:25 Dose: 30 mls/hr Amiodarone HCl 900 mg/ (Dextrose) 500 mls @ 33.33 mls/hr IV .Q15H1M [facility]ILY PRN Reason: 1 MG/MIN Last Admin: 11/19/16 23:00 Dose: 33.33 mls/hr Metoprolol Tartrate (Lopressor) 12.5 mg PO BID [facility] Last Admin: 11/20/16 09:41 Dose: 12.5 mg Pantoprazole Sodium (Protonix Ec Tab) 40 mg PO DAILY [facility] Last Admin: 11/20/16 09:41 Dose: 40 mg Rosuvastatin Calcium (Crestor) 10 mg PO HS [facility] Last Admin: 11/19/16 21:27 Dose: 10 mg Ticagrelor (Brilinta) 90 mg PO BID [facility] Last Admin: 11/20/16 09:41 Dose: 90 mg Zolpidem Tartrate (Ambien) 5 mg PO HS PRN PRN Reason: Insomnia Last Admin: 11/19/16 21:27 Dose: 5 mg - Labs Labs: 11/20/16 06:28 11/20/16 06:28 PT 12.0 SECONDS (9.7-12.2) 11/17/16 22:01 INR 1.1 11/17/16 22:01 APTT 30 SECONDS (21-34) 11/17/16 22:01
[2016-11-20] MEDS: Lidocaine 2 Grams in D5W 500 ML IV SCH (11:18)
[2016-11-20] MEDS: (Novolog) Insulin Aspart, Recombinant 100 u/ml 10 ml vial SC SCH ×3 (11:42→22:06)
--- NOTE | 2016-11-20 14:29 | CP.PCM.PN ---
Subjective - Date & Time of Evaluation Date of Evaluation: 11/20/16 Time of Evaluation: 10:40 - Subjective Subjective: patient has no current VT. on amiodarone and lidocaine. Objective - Vital Signs/Intake and Output Vital Signs (last 24 hours): Temp Pulse Resp BP Pulse Ox 99.5 F 75 21 97/54 L 96 11/20/16 12:00 11/20/16 13:00 11/20/16 13:00 11/20/16 13:00 11/20/16 13:00 Intake and Output: 11/20/16 11/20/16 06:59 18:59 Intake Total 1102.9 803.1 Output Total 1350 600 Balance -247.1 203.1 - Medications Medications: Current Medications Aspirin (Ecotrin) 81 mg PO DAILY [facility] Last Admin: 11/20/16 09:41 Dose: 81 mg Docusate Sodium (Colace) 100 mg PO BID [facility] Last Admin: 11/20/16 09:41 Dose: 100 mg Enoxaparin Sodium (Lovenox) 110 mg SC Q12 [facility] Last Admin: 11/20/16 09:41 Dose: 110 mg Lidocaine HCl/Dextrose (Lidocaine 2 Grams In D5w) 500 mls @ 30 mls/hr IV .[id number] [facility] PRN Reason: 2 MG/MIN Last Admin: 11/20/16 11:18 Dose: 30 mls/hr Amiodarone HCl 900 mg/ (Dextrose) 500 mls @ 33.33 mls/hr IV .Q15H1M [facility] PRN Reason: 1 MG/MIN Last Admin: 11/19/16 23:00 Dose: 33.33 mls/hr Insulin Aspart (Novolog) 0 unit SC ACHS [facility] PRN Reason: Protocol Last Admin: 11/20/16 11:42 Dose: 2 unit Metoprolol Tartrate (Lopressor) 12.5 mg PO BID [facility] Last Admin: 11/20/16 09:41 Dose: 12.5 mg Pantoprazole Sodium (Protonix Ec Tab) 40 mg PO DAILY [facility] Last Admin: 11/20/16 09:41 Dose: 40 mg Rosuvastatin Calcium (Crestor) 10 mg PO HS [facility] Last Admin: 11/19/16 21:27 Dose: 10 mg Ticagrelor (Brilinta) 90 mg PO BID [facility] Last Admin: 11/20/16 09:41 Dose: 90 mg Zolpidem Tartrate (Ambien) 5 mg PO HS PRN PRN Reason: Insomnia Last Admin: 11/19/16 21:27 Dose: 5 mg - Labs Labs: 11/20/16 06:28 11/20/16 06:28 PT 12.0 SECONDS (9.7-12.2) 11/17/16 22:01 INR 1.1 11/17/16 22:01 APTT 30 SECONDS (21-34) 11/17/16 22:01 - Constitutional Appears: Non-toxic - Head Exam Head Exam: NORMAL INSPECTION - Eye Exam Eye Exam: Normal appearance - ENT Exam ENT Exam: Mucous Membranes Moist - Neck Exam Neck Exam: Full ROM - Respiratory Exam Respiratory Exam: NORMAL BREATHING PATTERN - Cardiovascular Exam Cardiovascular Exam: REGULAR RHYTHM - GI/Abdominal Exam GI & Abdominal Exam: Normal Bowel Sounds - Rectal Exam Rectal Exam: Deferred - Extremities Exam Extremities Exam: absent: Pedal Edema - Back Exam Back Exam: NORMAL INSPECTION - Neurological Exam Neurological Exam: Alert - Psychiatric Exam Psychiatric exam: Normal Affect - Skin Skin Exam: Normal Color Assessment and Plan (1) Acute myocardial infarction Assessment & Plan: s/p PCI LAD. continue ASA/Brilinta Status: Acute (2) HTN (hypertension) Assessment & Plan: watching blood pressure Status: Acute (3) Ventricular tachycardia Assessment & Plan: currently on amiodarone/lidocaine. will monitor for recurrent arrhythmia. Will need transfer for PCI Left circumflex. Given need for amio and lidocaine, patietn may need AICD for secondary prevention after coronary intervention. will transfer to tertiary care hospital when stable. Status: Acute (4) Diabetes Assessment & Plan: follow up Hgb A1C. Status: Acute
[2016-11-20] MEDS ORDERED: Midazolam 2 MG/2 ML VIAL IVP ONE (15:20)
--- NOTE | 2016-11-20 18:16 | CP.CCUPN ---
CCU Objective - Vital Signs / Intake & Output Vital Signs (Last 4 hours): Vital Signs Temp Pulse Resp BP Pulse Ox 11/20/16 17:10 92 H 22 113/74 94 L 11/20/16 17:00 88 22 113/74 94 L 11/20/16 16:00 98.6 F 86 22 111/71 95 11/20/16 15:00 82 22 118/72 96 Intake and Output (Last 8hrs): Intake & Output 11/20/16 11/20/16 11/20/16 06:59 14:59 22:59 Intake Total 506.4 866.4 249.9 Output Total 1000 600 100 Balance -493.6 266.4 149.9 Intake: Intake, IV Amount 506.4 506.4 189.9 Right Forearm 266.4 266.4 99.9 Rt forearm side port 240 240 90 Oral 360 60 Output: Urine 1000 600 100 Urine, Voided 1000 600 100 Other: # Bowel Movements 1 - Physical Exam Head: Positive for: Atraumatic, Normocephalic Pupils: Positive for: PERRL Extroacular Muscles: Positive for: EOMI Mouth: Positive for: Moist Mucous Membranes Neck: Positive for: Normal Range of Motion Respiratory/Chest: Positive for: Clear to Auscultation Cardiovascular: Positive for: Irregular Rhythm Abdomen: Positive for: Normal Bowel Sounds Upper Extremity: Positive for: Normal Inspection Lower Extremity: Positive for: Normal Inspection Psychiatric: Positive for: Alert, Oriented x 3 - Medications Active Medications: Active Medications Generic Name Dose Route Start Last Admin Trade Name Freq PRN Reason Stop Dose Admin Aspirin 81 mg 11/18/16 10:00 11/20/16 09:41 Ecotrin PO 81 mg DAILY WILY Administration Docusate Sodium 100 mg 11/18/16 10:00 11/20/16 17:10 Colace PO 100 mg BID WILY Administration Enoxaparin Sodium 110 mg 11/19/16 10:00 11/20/16 09:41 Lovenox SC 110 mg Q12 WILY Administration Lidocaine HCl/Dextrose 500 mls @ 30 mls/hr 11/19/16 18:00 11/20/16 11:18 Lidocaine 2 Grams In D5w IV 30 mls/hr .[id number] WILY Administration 2 MG/MIN Amiodarone HCl 900 mg/ 500 mls @ 33.33 mls/hr 11/19/16 23:00 11/20/16 17:10 Dextrose IV 33.33 mls/hr .Q15H1M WILY Administration 1 MG/MIN Insulin Aspart 0 unit 11/20/16 11:30 11/20/16 17:11 Novolog SC 2 unit ACHS WILY Administration Protocol Metoprolol Tartrate 12.5 mg 11/18/16 10:00 11/20/16 17:10 Lopressor PO 12.5 mg BID WILY Administration Pantoprazole Sodium 40 mg 11/18/16 10:00 11/20/16 09:41 Protonix Ec Tab PO 40 mg DAILY WILY Administration Rosuvastatin Calcium 10 mg 11/18/16 22:00 11/19/16 21:27 Crestor PO 10 mg HS WILY Administration Ticagrelor 90 mg 11/18/16 10:00 11/20/16 17:10 Brilinta PO 90 mg BID WILY Administration Zolpidem Tartrate 5 mg 11/19/16 21:20 11/19/16 21:27 Ambien PO 5 mg HS PRN Administration Insomnia - Patient Studies Lab Studies: Microbiology Studies 11/18/16 09:00 MRSA Culture (Admit) - Final Naris MRSA NOT DETECTED Lab Studies 11/20/16 11/20/16 11/20/16 Range/Units 16:02 11:37 10:45 WBC (4.8-10.8) K/uL RBC (4.40-5.90) Mil/uL Hgb (12.0-18.0) g/dL Hct (35.0-51.0) % MCV (80.0-94.0) fL MCH (27.0-31.0) pg MCHC (33.0-37.0) g/dL RDW (11.5-14.5) % Plt Count (130-400) K/uL MPV (7.2-11.7) fL Neut % (Auto) (50.0-75.0) % Lymph % (Auto) (20.0-40.0) % [place] % (Auto) (0.0-10.0) % Eos % (Auto) (0.0-4.0) % Baso % (Auto) (0.0-2.0) % Neut # (1.8-7.0) K/uL Lymph # (1.0-4.3) K/uL [place] # (0.0-0.8) K/uL Eos # (0.0-0.7) K/uL Baso # (0.0-0.2) K/uL Sodium (132-148) mmol/L Potassium (3.6-5.2) mmol/L Chloride (98-107) mmol/L Carbon Dioxide (22-30) mmol/L Anion Gap (10-20) BUN (9-20) mg/dL Creatinine (0.8-1.5) MG/DL Est GFR ( Amer) Est GFR (Non-Af Amer) POC Glucose (mg/dL) 212 H 206 H (65-110) mg/dL Random Glucose (75-110) mg/dL Calcium (8.6-10.4) mg/dl Phosphorus (2.5-4.5) mg/dL Magnesium (1.6-2.3) mg/dL Total Bilirubin (0.2-1.3) mg/dL AST (17-59) U/L ALT (21-72) U/L Alkaline Phosphatase (38-126) U/L Troponin I 16.9000 H* (0.00-0.120) ng/mL Total Protein (6.3-8.3) g/dL Albumin (3.5-5.0) g/dL Globulin (2.2-3.9) gm/dL Albumin/Globulin Ratio (1.0-2.1) 11/20/16 11/20/16 11/19/16 Range/Units 08:06 06:28 21:20 WBC 10.1 (4.8-10.8) K/uL RBC 4.82 (4.40-5.90) Mil/uL Hgb 13.9 (12.0-18.0) g/dL Hct 40.4 (35.0-51.0) % MCV 83.7 (80.0-94.0) fL MCH 28.7 (27.0-31.0) pg MCHC 34.3 (33.0-37.0) g/dL RDW 13.7 (11.5-14.5) % Plt Count 174 (130-400) K/uL MPV 7.7 (7.2-11.7) fL Neut % (Auto) 73.9 (50.0-75.0) % Lymph % (Auto) 15.0 L (20.0-40.0) % [place] % (Auto) 10.3 H (0.0-10.0) % Eos % (Auto) 0.2 (0.0-4.0) % Baso % (Auto) 0.6 (0.0-2.0) % Neut # 7.5 H (1.8-7.0) K/uL Lymph # 1.5 (1.0-4.3) K/uL [place] # 1.0 H (0.0-0.8) K/uL Eos # 0.0 (0.0-0.7) K/uL Baso # 0.1 (0.0-0.2) K/uL Sodium 136 (132-148) mmol/L Potassium 3.9 (3.6-5.2) mmol/L Chloride 99 (98-107) mmol/L Carbon Dioxide 26 (22-30) mmol/L Anion Gap 15 (10-20) BUN 19 (9-20) mg/dL Creatinine 1.1 (0.8-1.5) MG/DL Est GFR ( Amer) > 60 Est GFR (Non-Af Amer) > 60 POC Glucose (mg/dL) 168 H 153 H (65-110) mg/dL Random Glucose 159 H (75-110) mg/dL Calcium 7.8 L (8.6-10.4) mg/dl Phosphorus 2.6 (2.5-4.5) mg/dL Magnesium 2.2 (1.6-2.3) mg/dL Total Bilirubin 1.6 H (0.2-1.3) mg/dL AST 96 H D (17-59) U/L ALT 57 (21-72) U/L Alkaline Phosphatase 51 (38-126) U/L Troponin I (0.00-0.120) ng/mL Total Protein 7.0 (6.3-8.3) g/dL Albumin 3.6 (3.5-5.0) g/dL Globulin 3.4 (2.2-3.9) gm/dL Albumin/Globulin Ratio 1.1 (1.0-2.1) Laboratory Results - last 24 hr 03/11/20/16 11/20/16 21:20 06:28 08:06 WBC 10.1 RBC 4.82 Hgb 13.9 Hct 40.4 MCV 83.7 MCH 28.7 MCHC 34.3 RDW 13.7 Plt Count 174 MPV 7.7 Neut % (Auto) 73.9 Lymph % (Auto) 15.0 L [place] % (Auto) 10.3 H Eos % (Auto) 0.2 Baso % (Auto) 0.6 Neut # 7.5 H Lymph # 1.5 [place] # 1.0 H Eos # 0.0 Baso # 0.1 Sodium 136 Potassium 3.9 Chloride 99 Carbon Dioxide 26 Anion Gap 15 BUN 19 Creatinine 1.1 Est GFR ( Amer) > 60 Est GFR (Non-Af Amer) > 60 POC Glucose (mg/dL) 153 H 168 H Random Glucose 159 H Calcium 7.8 L Phosphorus 2.6 Magnesium 2.2 Total Bilirubin 1.6 H AST 96 H D ALT 57 Alkaline Phosphatase 51 Troponin I Total Protein 7.0 Albumin 3.6 Globulin 3.4 Albumin/Globulin Ratio 1.1 11/20/16 11/20/16 11/20/16 10:45 11:37 16:02 WBC RBC Hgb Hct MCV MCH MCHC RDW Plt Count MPV Neut % (Auto) Lymph % (Auto) [place] % (Auto) Eos % (Auto) Baso % (Auto) Neut # Lymph # [place] # Eos # Baso # Sodium Potassium Chloride Carbon Dioxide Anion Gap BUN Creatinine Est GFR ( Amer) Est GFR (Non-Af Amer) POC Glucose (mg/dL) 206 H 212 H Random Glucose Calcium Phosphorus Magnesium Total Bilirubin AST ALT Alkaline Phosphatase Troponin I 16.9000 H* Total Protein Albumin Globulin Albumin/Globulin Ratio EKG/Cardiology Studies: Cardiology / EKG Studies 11/20/16 10:36 EKG [ELECTROCARDIOGRAM] Stat Comment: Mode Of Transportation: PORTABLE Reason For Exam: s/p cardiac cath 11/18/16 and vtach 11/20/16 17:28 EKG [ELECTROCARDIOGRAM] Stat Comment: Mode Of Transportation: PORTABLE Reason For Exam: evaluation of rhythm Fingerstick Blood Sugar Results: 153 Critical Care Progress Note - Nutrition Nutrition: Nutrition Category Date Time Status Heart Healthy Diet [DIET] Diets 11/18/16 Breakfast Active Assessment/Plan (1) Acute myocardial infarction Assessment and plan: Patient is a 66 M with medical history significant for hypertension and hyperlipidemia who presented to the emergency department with chest pain. Patient reports he was in [facility] and had just finished eating a large steak dinner when he suddenly developed sharp 8.5/10 intensity chest pain to his sternum which radiated to his left arm. Patient admits to associated nausea and diaphoresis. Initial blood pressure was elevated 160/100 and patient was given ASA 325 mg po, Morphine 6 mg IVP and nitro paste, which improved pressure to 140 /90. Troponin was positive 0.2350 and patient was admitted for NSTEMI as initial EKG did not show ST elevations. Later during emergency room course, patient had an episode of emesis and repeat EKG was significant for ST elevations to V2-6. Code heart was called. s/p stent LAD, and critical stenosis of the LPDA. Patient went into ventricular tachycardia status post cardioversion 2 and started on amiodarone drip. Neuro: Alert and oriented 3 Pulm: No acute issues, breathing spontaneously on 2 L nasal cannula. CV: Hemodynamically stable, patient in with arrythmogenic state currently controlled with amiodarone drip and lidocaine drip. Cardiology consult Dr. Barnes following. Hem: No acute issues, on therapeutic Lovenox status post stenting. Renal: No acute issues Endo: Patient is hyperglycemic on short acting insulin sliding scale, check hemoglobin A1c to diagnose diabetes. GI: Cardiac diet ID: No acute issues DVT proph - therapeutic Lovenox GI proph - Protonix Code status - full code Crtical Care Time spent 35 minutes Multi-disciplinary rounds were performed with house staff, nursing, speech therapy, respiratory therapy, pharmacy and nutrition with integrated input from the primary team/attending and other consulting services. The documented time is cumulative and includes review of patient data/exams/labs/chart review and examination of the patient on rounds and throughout the day; time is exclusive of any procedures or teaching time. Current Visit: Yes Status: Acute Comment: code Heart, status post stent placement LAD, Patient has critical stenosis of the LPDA. Dr Herbert will schedule elective intervention in the future Patient was started on amiodarone drip for ventricular tachycardia status post cardioversion 2 Continue anticoagulation Case discussed with cardiology
--- NOTE | 2016-11-20 22:14 | CARD ---
APPROVED REPORT EKG Measurement Heart [id number] <Conclusion> Atrial fibrillation with rapid ventricular response Low voltage QRS Acute Anterolateral infarct Abnormal ECG
--- NOTE | 2016-11-20 23:59 | CARD ---
APPROVED REPORT EKG Measurement Heart [id number] <Conclusion> Intrinsic rhythm is sinus with intermittent ventricular-paced beats Left axis deviation Inferior infarct, age undetermined Anterolateral infarct, age undetermined Abnormal ECG
[2016-11-21] MEDS: Lidocaine 2 Grams in D5W 500 ML IV SCH ×3 (05:00→22:04)
[2016-11-21 06:50] LABS: BASO # 0.1 K/uL (0.0-0.2); BASO % 0.7 % (0.0-2.0); EOS % 0.1 % (0.0-4.0); LYMPH # 1.5 K/uL (1.0-4.3); LYMPH % 14.3 % (20.0-40.0); MEAN CELL VOLUME 83.7 fL (80.0-94.0); MEAN CORPUSCULAR HGB CONC 34.6 g/dL (33.0-37.0); MEAN PLATELET VOLUME 7.7 fL (7.2-11.7); MONO # 0.9 K/uL (0.0-0.8); MONO % 8.9 % (0.0-10.0); RED CELL DISTRIBUTION WIDTH 13.6 % (11.5-14.5); WHITE BLOOD COUNT 10.7 K/uL (4.8-10.8)
[2016-11-21 06:58] LABS: CHLORIDE 99 mmol/L (98-107); POTASSIUM 4.1 mmol/L (3.6-5.2); SODIUM 135 mmol/L (132-148)
[2016-11-21 07:00] LABS: AST/SGOT 50 U/L (17-59); BILIRUBIN,TOTAL 1.8 mg/dL (0.2-1.3); CARBON DIOXIDE 24 mmol/L (22-30); GFR AFRICAN-AMERICAN > 60
[2016-11-21 07:01] LABS: ALB/GLOB RATIO 1.1 (1.0-2.1); ALKALINE PHOSPHATASE 44 U/L (38-126); ALT/SGPT 43 U/L (21-72); BLOOD UREA NITROGEN 17 mg/dL (9-20); CALCIUM 8.2 mg/dl (8.6-10.4); GLUCOSE,RANDOM 161 mg/dL (75-110); PHOSPHOROUS 2.9 mg/dL (2.5-4.5)
[2016-11-21 07:02] LABS: MAGNESIUM 2.2 mg/dL (1.6-2.3)
--- NOTE | 2016-11-21 08:20 | CP.PCM.PN ---
Subjective - Date & Time of Evaluation Date of Evaluation: 11/21/16 Time of Evaluation: 08:10 - Subjective Subjective: patient has less chest pain today. had nausea and vomiting last night. Objective - Vital Signs/Intake and Output Vital Signs (last 24 hours): Temp Pulse Resp BP Pulse Ox 98.4 F 78 20 97/64 L 99 11/21/16 04:00 11/21/16 06:00 11/21/16 06:00 11/21/16 06:00 11/21/16 06:00 Intake and Output: 11/21/16 11/21/16 06:59 18:59 Intake Total 759.6 Output Total 1000 Balance -240.4 - Medications Medications: Current Medications Aspirin (Ecotrin) 81 mg PO DAILY [facility] Last Admin: 11/20/16 09:41 Dose: 81 mg Docusate Sodium (Colace) 100 mg PO BID [facility] Last Admin: 11/20/16 17:10 Dose: 100 mg Enoxaparin Sodium (Lovenox) 110 mg SC Q12 [facility] Last Admin: 11/20/16 22:09 Dose: 110 mg Lidocaine HCl/Dextrose (Lidocaine 2 Grams In D5w) 500 mls @ 30 mls/hr IV .[id number] [facility] PRN Reason: 2 MG/MIN Last Admin: 11/21/16 05:00 Dose: 30 mls/hr Amiodarone HCl 900 mg/ (Dextrose) 500 mls @ 33.33 mls/hr IV .Q15H1M [facility] PRN Reason: 1 MG/MIN Last Admin: 11/21/16 07:42 Dose: Not Given Insulin Aspart (Novolog) 0 unit SC ACHS [facility] PRN Reason: Protocol Last Admin: 11/20/16 22:06 Dose: Not Given Metoprolol Tartrate (Lopressor) 12.5 mg PO BID [facility] Last Admin: 11/20/16 17:10 Dose: 12.5 mg Ondansetron HCl (Zofran Inj) 4 mg IVP Q6 PRN PRN Reason: Nausea/Vomiting Last Admin: 11/20/16 22:09 Dose: 4 mg Pantoprazole Sodium (Protonix Ec Tab) 40 mg PO DAILY [facility] Last Admin: 11/20/16 09:41 Dose: 40 mg Rosuvastatin Calcium (Crestor) 10 mg PO HS [facility] Last Admin: 11/20/16 22:08 Dose: 10 mg Ticagrelor (Brilinta) 90 mg PO BID WILY Last Admin: 11/20/16 17:10 Dose: 90 mg Zolpidem Tartrate (Ambien) 5 mg PO HS PRN PRN Reason: Insomnia Last Admin: 11/20/16 22:08 Dose: 5 mg - Labs Labs: 11/21/16 06:47 11/21/16 04:00 PT 12.0 SECONDS (9.7-12.2) 11/17/16 22:01 INR 1.1 11/17/16 22:01 APTT 30 SECONDS (21-34) 11/17/16 22:01 - Constitutional Appears: Non-toxic - Head Exam Head Exam: NORMAL INSPECTION - Eye Exam Eye Exam: Normal appearance - ENT Exam ENT Exam: Mucous Membranes Moist - Neck Exam Neck Exam: Full ROM - Respiratory Exam Respiratory Exam: NORMAL BREATHING PATTERN - Cardiovascular Exam Cardiovascular Exam: REGULAR RHYTHM - GI/Abdominal Exam GI & Abdominal Exam: Normal Bowel Sounds - Rectal Exam Rectal Exam: Deferred - Extremities Exam Extremities Exam: Pedal Edema - Back Exam Back Exam: NORMAL INSPECTION - Neurological Exam Neurological Exam: Alert - Psychiatric Exam Psychiatric exam: Normal Affect - Skin Skin Exam: Normal Color Assessment and Plan (1) Acute myocardial infarction Assessment & Plan: continue ASA/Brilinta Status: Acute (2) HTN (hypertension) Status: Acute (3) Ventricular tachycardia Assessment & Plan: malignant arrhythmia. currently stable on amidoarone and lidocaine. will need transfer for PCI LPDA. The patient may also need AICD. Givne malignant arrhythmia will transfer to hospital with AICD capabilities. Status: Acute (4) Diabetes Assessment & Plan: follow blood sugar. Status: Acute
--- NOTE | 2016-11-21 08:21 | CP.CCUPN ---
<Kamryn Brown - Last Filed: 11/21/16 11:27> CCU Subjective - Physician Review Subjective (Free Text): 11/21/16 09:43 Pt seen and examined in no acute distress. Patient states that he does not have any chest pain or palpitations but he does complain of nausea, vomiting and restlessness overnight. Pt does not have much of an appetite either. Pt seen by Dr. Barnes (Cardiology ) this morning. Pt denies and headaches, subjective fevers or chills, diarrhea, constipation or paresthesias at this time. CCU Objective - Vital Signs / Intake & Output Vital Signs (Last 4 hours): Vital Signs Pulse Resp BP Pulse Ox 11/21/16 06:00 78 20 97/64 L 99 11/21/16 05:00 74 20 92/55 L 99 Intake and Output (Last 8hrs): Intake & Output 11/20/16 11/21/16 11/21/16 22:59 06:59 14:59 Intake Total 566.4 506.4 Output Total 400 700 Balance 166.4 -193.6 Weight 266 lb 12.149 oz Intake: Intake, IV Amount 506.4 506.4 Right Forearm 266.4 266.4 Rt forearm side port 240 240 Oral 60 Output: Urine 400 700 Urine, Voided 400 700 - Physical Exam Head: Positive for: Atraumatic, Normocephalic Pupils: Positive for: PERRL Extroacular Muscles: Positive for: EOMI Mouth: Positive for: Moist Mucous Membranes Neck: Positive for: Normal Range of Motion Respiratory/Chest: Positive for: Clear to Auscultation Cardiovascular: Positive for: Normal S1, S2 Abdomen: Positive for: Distention, Normal Bowel Sounds. Negative for: Tenderness, Peritoneal Signs Upper Extremity: Positive for: Normal Inspection Lower Extremity: Positive for: Normal Inspection Neurological: Positive for: CN II-XII Intact Skin: Positive for: Warm, Dry Psychiatric: Positive for: Alert, Oriented x 3, Normal Insight, Normal Concentration - Medications Active Medications: Active Medications Generic Name Dose Route Start Last Admin Trade Name Freq PRN Reason Stop Dose Admin Aspirin 81 mg 11/18/16 10:00 11/20/16 09:41 Ecotrin PO 81 mg DAILY WILY Administration Docusate Sodium 100 mg 11/18/16 10:00 11/20/16 17:10 Colace PO 100 mg BID WILY Administration Enoxaparin Sodium 110 mg 11/19/16 10:00 11/20/16 22:09 Lovenox SC 110 mg Q12 WILY Administration Lidocaine HCl/Dextrose 500 mls @ 30 mls/hr 11/19/16 18:00 11/21/16 05:00 Lidocaine 2 Grams In D5w IV 30 mls/hr .[id number] WILY Administration 2 MG/MIN Amiodarone HCl 900 mg/ 500 mls @ 33.33 mls/hr 11/19/16 23:00 11/21/16 07:42 Dextrose IV Not Given .Q15H1M WILY 1 MG/MIN Insulin Aspart 0 unit 11/20/16 11:30 11/20/16 22:06 Novolog SC Not Given ACHS WILY Protocol Metoprolol Tartrate 12.5 mg 11/18/16 10:00 11/20/16 17:10 Lopressor PO 12.5 mg BID WILY Administration Ondansetron HCl 4 mg 11/20/16 19:56 11/20/16 22:09 Zofran Inj IVP 4 mg Q6 PRN Administration Nausea/Vomiting Pantoprazole Sodium 40 mg 11/18/16 10:00 11/20/16 09:41 Protonix Ec Tab PO 40 mg DAILY WILY Administration Rosuvastatin Calcium 10 mg 11/18/16 22:00 11/20/16 22:08 Crestor PO 10 mg HS WILY Administration Ticagrelor 90 mg 11/18/16 10:00 11/20/16 17:10 Brilinta PO 90 mg BID WILY Administration Zolpidem Tartrate 5 mg 11/19/16 21:20 11/20/16 22:08 Ambien PO 5 mg HS PRN Administration Insomnia - Patient Studies Lab Studies: Lab Studies 11/21/16 11/21/16 11/20/16 Range/Units 06:47 04:00 20:59 WBC 10.7 (4.8-10.8) K/uL RBC 4.66 (4.40-5.90) Mil/uL Hgb 13.5 (12.0-18.0) g/dL Hct 39.0 (35.0-51.0) % MCV 83.7 (80.0-94.0) fL MCH 29.0 (27.0-31.0) pg MCHC 34.6 (33.0-37.0) g/dL RDW 13.6 (11.5-14.5) % Plt Count 190 (130-400) K/uL MPV 7.7 (7.2-11.7) fL Neut % (Auto) 76.0 H (50.0-75.0) % Lymph % (Auto) 14.3 L (20.0-40.0) % Casey % (Auto) 8.9 (0.0-10.0) % Eos % (Auto) 0.1 (0.0-4.0) % Baso % (Auto) 0.7 (0.0-2.0) % Neut # 8.1 H (1.8-7.0) K/uL Lymph # 1.5 (1.0-4.3) K/uL Casey # 0.9 H (0.0-0.8) K/uL Eos # 0.0 (0.0-0.7) K/uL Baso # 0.1 (0.0-0.2) K/uL Sodium 135 (132-148) mmol/L Potassium 4.1 (3.6-5.2) mmol/L Chloride 99 (98-107) mmol/L Carbon Dioxide 24 (22-30) mmol/L Anion Gap 16 (10-20) BUN 17 (9-20) mg/dL Creatinine 1.1 (0.8-1.5) MG/DL Est GFR ( Amer) > 60 Est GFR (Non-Af Amer) > 60 POC Glucose (mg/dL) 199 H (65-110) mg/dL Random Glucose 161 H (75-110) mg/dL Hemoglobin A1c 7.0 H (4.2-6.5) % Calcium 8.2 L (8.6-10.4) mg/dl Phosphorus 2.9 (2.5-4.5) mg/dL Magnesium 2.2 (1.6-2.3) mg/dL Total Bilirubin 1.8 H (0.2-1.3) mg/dL AST 50 (17-59) U/L ALT 43 (21-72) U/L Alkaline Phosphatase 44 (38-126) U/L Total Creatine Kinase (55-170) U/L CK-MB (Mass) (0.0-3.38) ng/mL Troponin I (0.00-0.120) ng/mL Troponin I, Quant (0.00-0.120) ng/mL Total Protein 7.0 (6.3-8.3) g/dL Albumin 3.6 (3.5-5.0) g/dL Globulin 3.4 (2.2-3.9) gm/dL Albumin/Globulin Ratio 1.1 (1.0-2.1) 11/20/16 11/20/16 11/20/16 Range/Units 19:47 16:02 11:37 WBC (4.8-10.8) K/uL RBC (4.40-5.90) Mil/uL Hgb (12.0-18.0) g/dL Hct (35.0-51.0) % MCV (80.0-94.0) fL MCH (27.0-31.0) pg MCHC (33.0-37.0) g/dL RDW (11.5-14.5) % Plt Count (130-400) K/uL MPV (7.2-11.7) fL Neut % (Auto) (50.0-75.0) % Lymph % (Auto) (20.0-40.0) % Casey % (Auto) (0.0-10.0) % Eos % (Auto) (0.0-4.0) % Baso % (Auto) (0.0-2.0) % Neut # (1.8-7.0) K/uL Lymph # (1.0-4.3) K/uL Casey # (0.0-0.8) K/uL Eos # (0.0-0.7) K/uL Baso # (0.0-0.2) K/uL Sodium (132-148) mmol/L Potassium (3.6-5.2) mmol/L Chloride (98-107) mmol/L Carbon Dioxide (22-30) mmol/L Anion Gap (10-20) BUN (9-20) mg/dL Creatinine (0.8-1.5) MG/DL Est GFR ( Amer) Est GFR (Non-Af Amer) POC Glucose (mg/dL) 212 H 206 H (65-110) mg/dL Random Glucose (75-110) mg/dL Hemoglobin A1c (4.2-6.5) % Calcium (8.6-10.4) mg/dl Phosphorus (2.5-4.5) mg/dL Magnesium (1.6-2.3) mg/dL Total Bilirubin (0.2-1.3) mg/dL AST (17-59) U/L ALT (21-72) U/L Alkaline Phosphatase (38-126) U/L Total Creatine Kinase 255 H (55-170) U/L CK-MB (Mass) 2.91 (0.0-3.38) ng/mL Troponin I (0.00-0.120) ng/mL Troponin I, Quant 15.2000 H* (0.00-0.120) ng/mL Total Protein (6.3-8.3) g/dL Albumin (3.5-5.0) g/dL Globulin (2.2-3.9) gm/dL Albumin/Globulin Ratio (1.0-2.1) 11/20/16 11/20/16 Range/Units 10:45 08:06 WBC (4.8-10.8) K/uL RBC (4.40-5.90) Mil/uL Hgb (12.0-18.0) g/dL Hct (35.0-51.0) % MCV (80.0-94.0) fL MCH (27.0-31.0) pg MCHC (33.0-37.0) g/dL RDW (11.5-14.5) % Plt Count (130-400) K/uL MPV (7.2-11.7) fL Neut % (Auto) (50.0-75.0) % Lymph % (Auto) (20.0-40.0) % Casey % (Auto) (0.0-10.0) % Eos % (Auto) (0.0-4.0) % Baso % (Auto) (0.0-2.0) % Neut # (1.8-7.0) K/uL Lymph # (1.0-4.3) K/uL Casey # (0.0-0.8) K/uL Eos # (0.0-0.7) K/uL Baso # (0.0-0.2) K/uL Sodium (132-148) mmol/L Potassium (3.6-5.2) mmol/L Chloride (98-107) mmol/L Carbon Dioxide (22-30) mmol/L Anion Gap (10-20) BUN (9-20) mg/dL Creatinine (0.8-1.5) MG/DL Est GFR ( Amer) Est GFR (Non-Af Amer) POC Glucose (mg/dL) 168 H (65-110) mg/dL Random Glucose (75-110) mg/dL Hemoglobin A1c (4.2-6.5) % Calcium (8.6-10.4) mg/dl Phosphorus (2.5-4.5) mg/dL Magnesium (1.6-2.3) mg/dL Total Bilirubin (0.2-1.3) mg/dL AST (17-59) U/L ALT (21-72) U/L Alkaline Phosphatase (38-126) U/L Total Creatine Kinase (55-170) U/L CK-MB (Mass) (0.0-3.38) ng/mL Troponin I 16.9000 H* (0.00-0.120) ng/mL Troponin I, Quant (0.00-0.120) ng/mL Total Protein (6.3-8.3) g/dL Albumin (3.5-5.0) g/dL Globulin (2.2-3.9) gm/dL Albumin/Globulin Ratio (1.0-2.1) Laboratory Results - last 24 hr 11/20/16 11/20/16 11/20/16 08:06 10:45 11:37 WBC RBC Hgb Hct MCV MCH MCHC RDW Plt Count MPV Neut % (Auto) Lymph % (Auto) Casey % (Auto) Eos % (Auto) Baso % (Auto) Neut # Lymph # Casey # Eos # Baso # Sodium Potassium Chloride Carbon Dioxide Anion Gap BUN Creatinine Est GFR ( Amer) Est GFR (Non-Af Amer) POC Glucose (mg/dL) 168 H 206 H Random Glucose Hemoglobin A1c Calcium Phosphorus Magnesium Total Bilirubin AST ALT Alkaline Phosphatase Total Creatine Kinase CK-MB (Mass) Troponin I 16.9000 H* Troponin I, Quant Total Protein Albumin Globulin Albumin/Globulin Ratio 11/20/16 11/20/16 11/20/16 16:02 19:47 20:59 WBC RBC Hgb Hct MCV MCH MCHC RDW Plt Count MPV Neut % (Auto) Lymph % (Auto) Casey % (Auto) Eos % (Auto) Baso % (Auto) Neut # Lymph # Casey # Eos # Baso # Sodium Potassium Chloride Carbon Dioxide Anion Gap BUN Creatinine Est GFR ( Amer) Est GFR (Non-Af Amer) POC Glucose (mg/dL) 212 H 199 H Random Glucose Hemoglobin A1c Calcium Phosphorus Magnesium Total Bilirubin AST ALT Alkaline Phosphatase Total Creatine Kinase 255 H CK-MB (Mass) 2.91 Troponin I Troponin I, Quant 15.2000 H* Total Protein Albumin Globulin Albumin/Globulin Ratio 11/21/16 11/21/16 04:00 06:47 WBC 10.7 RBC 4.66 Hgb 13.5 Hct 39.0 MCV 83.7 MCH 29.0 MCHC 34.6 RDW 13.6 Plt Count 190 MPV 7.7 Neut % (Auto) 76.0 H Lymph % (Auto) 14.3 L Casey % (Auto) 8.9 Eos % (Auto) 0.1 Baso % (Auto) 0.7 Neut # 8.1 H Lymph # 1.5 Casey # 0.9 H Eos # 0.0 Baso # 0.1 Sodium 135 Potassium 4.1 Chloride 99 Carbon Dioxide 24 Anion Gap 16 BUN 17 Creatinine 1.1 Est GFR ( Amer) > 60 Est GFR (Non-Af Amer) > 60 POC Glucose (mg/dL) Random Glucose 161 H Hemoglobin A1c 7.0 H Calcium 8.2 L Phosphorus 2.9 Magnesium 2.2 Total Bilirubin 1.8 H AST 50 ALT 43 Alkaline Phosphatase 44 Total Creatine Kinase CK-MB (Mass) Troponin I Troponin I, Quant Total Protein 7.0 Albumin 3.6 Globulin 3.4 Albumin/Globulin Ratio 1.1 EKG/Cardiology Studies: Cardiology / EKG Studies 11/20/16 10:36 EKG [ELECTROCARDIOGRAM] Stat Comment: Mode Of Transportation: PORTABLE Reason For Exam: s/p cardiac cath 11/18/16 and vtach 11/20/16 17:28 EKG [ELECTROCARDIOGRAM] Stat Comment: Mode Of Transportation: PORTABLE Reason For Exam: evaluation of rhythm Fingerstick Blood Sugar Results: 199 Review of Systems - Review of Systems Review of Systems: as noted in subjective Critical Care Progress Note - Nutrition Nutrition: Nutrition Category Date Time Status Heart Healthy Diet [DIET] Diets 11/21/16 Breakfast Active NPO Diet [DIET] Diets 11/22/16 Breakfast Active Assessment/Plan - Assessment and Plan (Free Text) Assessment: 66 yo M with medical history significant for hypertension and hyperlipidemia who presented to the emergency department with chest pain after eating a large steak dinner in [place]. Patient states that the pain was sharp rated 8.5/10 intensity radiating from the sternum to his left arm. Patient admits to associated nausea and diaphoresis. Initial blood pressure was elevated 160/100 and patient was given ASA 325 mg po, Morphine 6 mg IVP and nitro paste, which improved pressure to 140/90. Troponin was positive 0.2350 and patient was admitted for NSTEMI as initial EKG did not show ST elevations. Later during emergency room course, patient had an episode of emesis and repeat EKG was significant for ST elevations to V2-6. Code heart was called. s/p stent LAD, and critical stenosis of the LPDA. Patient went into ventricular tachycardia status post cardioversion 2 and started on amiodarone drip. Plan: Neuro: Alert and oriented 3 in no acute apparent distress Cont to monitor Pulm: No acute issues, breathing spontaneously on 2 L nasal cannula. CV: Hemodynamically stable, patient intermittently in atrial fibrillation with prior runs of vtach (now controlled) with amiodarone drip and lidocaine drip. Cardiology consult Dr. Barnes following- Pt will need transfer to facility with AICD capabilities for better assessment as well as PCI for LPDA. ASA 81, Lopressor 12.5 mg BID, Brilinta 90 mg PO BID Hem: No acute issues, on therapeutic Lovenox status post stent Renal: No acute issues Endo: Patient is hyperglycemic on short acting insulin sliding scale HgbA1c- 7 Needs better control outpatient. GI: Heart healthy diet Zofran PRN Colace 100 mg PO BID ID: No acute issues DVT proph - therapeutic Lovenox GI proph - Protonix Code status - full code <Promise Russell - Last Filed: 11/21/16 15:23> CCU Subjective - Physician Review Events Since Last Encounter (Free Text): 11/21/16 15:22 Patient is currently on lidocaine as well as amiodarone drip. He has no chest pain at this time. He denies any nausea vomiting. Last night the patient felt vomited. I spoke to the senior chemist today. [facility]ing of the circumflex artery, and also possible EP study evaluation. Patient had a recurrent V. tach in the past. He was cardioverted 3 yesterday before yesterday Vital signs stable clinically otherwise controlled. Continue the current treatment and will follow the patient. CCU Objective - Vital Signs / Intake & Output Vital Signs (Last 4 hours): Vital Signs Temp 11/21/16 12:00 100.3 F H Intake and Output (Last 8hrs): Intake & Output 11/21/16 11/21/16 11/21/16 06:59 14:59 22:59 Intake Total 506.4 1059.8 Output Total 700 200 Balance -193.6 859.8 Weight 266 lb 12.149 oz Intake: Intake, IV Amount 506.4 379.8 Right Forearm 266.4 199.8 Rt forearm side port 240 180 Oral 680 Output: Urine 700 200 Urine, Voided 700 200 - Medications Active Medications: Active Medications Generic Name Dose Route Start Last Admin Trade Name Freq PRN Reason Stop Dose Admin Aspirin 81 mg 11/18/16 10:00 11/21/16 10:25 Ecotrin PO 81 mg DAILY WILY Administration Docusate Sodium 100 mg 11/18/16 10:00 11/21/16 10:25 Colace PO 100 mg BID WILY Administration Enoxaparin Sodium 110 mg 11/19/16 10:00 11/21/16 10:25 Lovenox SC 110 mg Q12 WILY Administration Lidocaine HCl/Dextrose 500 mls @ 30 mls/hr 11/19/16 18:00 11/21/16 05:00 Lidocaine 2 Grams In D5w IV 30 mls/hr .[id number] WILY Administration 2 MG/MIN Amiodarone HCl 900 mg/ 500 mls @ 33.33 mls/hr 11/19/16 23:00 11/21/16 10:58 Dextrose IV 33.33 mls/hr .Q15H1M WILY Administration 1 MG/MIN Insulin Aspart 0 unit 11/20/16 11:30 11/21/16 12:05 Novolog SC 1 unit ACHS WILY Administration Protocol Metoprolol Tartrate 12.5 mg 11/18/16 10:00 11/21/16 10:25 Lopressor PO 12.5 mg BID WILY Administration Ondansetron HCl 4 mg 11/20/16 19:56 11/20/16 22:09 Zofran Inj IVP 4 mg Q6 PRN Administration Nausea/Vomiting Pantoprazole Sodium 40 mg 11/18/16 10:00 11/21/16 10:25 Protonix Ec Tab PO 40 mg DAILY WILY Administration Rosuvastatin Calcium 10 mg 11/18/16 22:00 11/20/16 22:08 Crestor PO 10 mg HS WILY Administration Ticagrelor 90 mg 11/18/16 10:00 11/21/16 10:25 Brilinta PO 90 mg BID WILY Administration Zolpidem Tartrate 5 mg 11/19/16 21:20 11/20/16 22:08 Ambien PO 5 mg HS PRN Administration Insomnia - Patient Studies Lab Studies: Lab Studies 11/21/16 11/21/16 11/21/16 Range/Units 11:55 08:22 06:47 WBC 10.7 (4.8-10.8) K/uL RBC 4.66 (4.40-5.90) Mil/uL Hgb 13.5 (12.0-18.0) g/dL Hct 39.0 (35.0-51.0) % MCV 83.7 (80.0-94.0) fL MCH 29.0 (27.0-31.0) pg MCHC 34.6 (33.0-37.0) g/dL RDW 13.6 (11.5-14.5) % Plt Count 190 (130-400) K/uL MPV 7.7 (7.2-11.7) fL Neut % (Auto) 76.0 H (50.0-75.0) % Lymph % (Auto) 14.3 L (20.0-40.0) % Casey % (Auto) 8.9 (0.0-10.0) % Eos % (Auto) 0.1 (0.0-4.0) % Baso % (Auto) 0.7 (0.0-2.0) % Neut # 8.1 H (1.8-7.0) K/uL Lymph # 1.5 (1.0-4.3) K/uL Casey # 0.9 H (0.0-0.8) K/uL Eos # 0.0 (0.0-0.7) K/uL Baso # 0.1 (0.0-0.2) K/uL Sodium (132-148) mmol/L Potassium (3.6-5.2) mmol/L Chloride (98-107) mmol/L Carbon Dioxide (22-30) mmol/L Anion Gap (10-20) BUN (9-20) mg/dL Creatinine (0.8-1.5) MG/DL Est GFR ( Amer) Est GFR (Non-Af Amer) POC Glucose (mg/dL) 178 H 153 H (65-110) mg/dL Random Glucose (75-110) mg/dL Hemoglobin A1c 7.0 H (4.2-6.5) % Calcium (8.6-10.4) mg/dl Phosphorus (2.5-4.5) mg/dL Magnesium (1.6-2.3) mg/dL Total Bilirubin (0.2-1.3) mg/dL AST (17-59) U/L ALT (21-72) U/L Alkaline Phosphatase (38-126) U/L Total Creatine Kinase (55-170) U/L CK-MB (Mass) (0.0-3.38) ng/mL Troponin I, Quant (0.00-0.120) ng/mL Total Protein (6.3-8.3) g/dL Albumin (3.5-5.0) g/dL Globulin (2.2-3.9) gm/dL Albumin/Globulin Ratio (1.0-2.1) 11/21/16 11/20/16 11/20/16 Range/Units 04:00 20:59 19:47 WBC (4.8-10.8) K/uL RBC (4.40-5.90) Mil/uL Hgb (12.0-18.0) g/dL Hct (35.0-51.0) % MCV (80.0-94.0) fL MCH (27.0-31.0) pg MCHC (33.0-37.0) g/dL RDW (11.5-14.5) % Plt Count (130-400) K/uL MPV (7.2-11.7) fL Neut % (Auto) (50.0-75.0) % Lymph % (Auto) (20.0-40.0) % Casey % (Auto) (0.0-10.0) % Eos % (Auto) (0.0-4.0) % Baso % (Auto) (0.0-2.0) % Neut # (1.8-7.0) K/uL Lymph # (1.0-4.3) K/uL Casey # (0.0-0.8) K/uL Eos # (0.0-0.7) K/uL Baso # (0.0-0.2) K/uL Sodium 135 (132-148) mmol/L Potassium 4.1 (3.6-5.2) mmol/L Chloride 99 (98-107) mmol/L Carbon Dioxide 24 (22-30) mmol/L Anion Gap 16 (10-20) BUN 17 (9-20) mg/dL Creatinine 1.1 (0.8-1.5) MG/DL Est GFR ( Amer) > 60 Est GFR (Non-Af Amer) > 60 POC Glucose (mg/dL) 199 H (65-110) mg/dL Random Glucose 161 H (75-110) mg/dL Hemoglobin A1c (4.2-6.5) % Calcium 8.2 L (8.6-10.4) mg/dl Phosphorus 2.9 (2.5-4.5) mg/dL Magnesium 2.2 (1.6-2.3) mg/dL Total Bilirubin 1.8 H (0.2-1.3) mg/dL AST 50 (17-59) U/L ALT 43 (21-72) U/L Alkaline Phosphatase 44 (38-126) U/L Total Creatine Kinase 255 H (55-170) U/L CK-MB (Mass) 2.91 (0.0-3.38) ng/mL Troponin I, Quant 15.2000 H* (0.00-0.120) ng/mL Total Protein 7.0 (6.3-8.3) g/dL Albumin 3.6 (3.5-5.0) g/dL Globulin 3.4 (2.2-3.9) gm/dL Albumin/Globulin Ratio 1.1 (1.0-2.1) 11/20/16 Range/Units 16:02 WBC (4.8-10.8) K/uL RBC (4.40-5.90) Mil/uL Hgb (12.0-18.0) g/dL Hct (35.0-51.0) % MCV (80.0-94.0) fL MCH (27.0-31.0) pg MCHC (33.0-37.0) g/dL RDW (11.5-14.5) % Plt Count (130-400) K/uL MPV (7.2-11.7) fL Neut % (Auto) (50.0-75.0) % Lymph % (Auto) (20.0-40.0) % Casey % (Auto) (0.0-10.0) % Eos % (Auto) (0.0-4.0) % Baso % (Auto) (0.0-2.0) % Neut # (1.8-7.0) K/uL Lymph # (1.0-4.3) K/uL Casey # (0.0-0.8) K/uL Eos # (0.0-0.7) K/uL Baso # (0.0-0.2) K/uL Sodium (132-148) mmol/L Potassium (3.6-5.2) mmol/L Chloride (98-107) mmol/L Carbon Dioxide (22-30) mmol/L Anion Gap (10-20) BUN (9-20) mg/dL Creatinine (0.8-1.5) MG/DL Est GFR ( Amer) Est GFR (Non-Af Amer) POC Glucose (mg/dL) 212 H (65-110) mg/dL Random Glucose (75-110) mg/dL Hemoglobin A1c (4.2-6.5) % Calcium (8.6-10.4) mg/dl Phosphorus (2.5-4.5) mg/dL Magnesium (1.6-2.3) mg/dL Total Bilirubin (0.2-1.3) mg/dL AST (17-59) U/L ALT (21-72) U/L Alkaline Phosphatase (38-126) U/L Total Creatine Kinase (55-170) U/L CK-MB (Mass) (0.0-3.38) ng/mL Troponin I, Quant (0.00-0.120) ng/mL Total Protein (6.3-8.3) g/dL Albumin (3.5-5.0) g/dL Globulin (2.2-3.9) gm/dL Albumin/Globulin Ratio (1.0-2.1) Laboratory Results - last 24 hr 11/20/16 11/20/16 11/20/16 16:02 19:47 20:59 WBC RBC Hgb Hct MCV MCH MCHC RDW Plt Count MPV Neut % (Auto) Lymph % (Auto) Casey % (Auto) Eos % (Auto) Baso % (Auto) Neut # Lymph # Casey # Eos # Baso # Sodium Potassium Chloride Carbon Dioxide Anion Gap BUN Creatinine Est GFR ( Amer) Est GFR (Non-Af Amer) POC Glucose (mg/dL) 212 H 199 H Random Glucose Hemoglobin A1c Calcium Phosphorus Magnesium Total Bilirubin AST ALT Alkaline Phosphatase Total Creatine Kinase 255 H CK-MB (Mass) 2.91 Troponin I, Quant 15.2000 H* Total Protein Albumin Globulin Albumin/Globulin Ratio 11/21/16 11/21/16 11/21/16 04:00 06:47 08:22 WBC 10.7 RBC 4.66 Hgb 13.5 Hct 39.0 MCV 83.7 MCH 29.0 MCHC 34.6 RDW 13.6 Plt Count 190 MPV 7.7 Neut % (Auto) 76.0 H Lymph % (Auto) 14.3 L Casey % (Auto) 8.9 Eos % (Auto) 0.1 Baso % (Auto) 0.7 Neut # 8.1 H Lymph # 1.5 Casey # 0.9 H Eos # 0.0 Baso # 0.1 Sodium 135 Potassium 4.1 Chloride 99 Carbon Dioxide 24 Anion Gap 16 BUN 17 Creatinine 1.1 Est GFR ( Amer) > 60 Est GFR (Non-Af Amer) > 60 POC Glucose (mg/dL) 153 H Random Glucose 161 H Hemoglobin A1c 7.0 H Calcium 8.2 L Phosphorus 2.9 Magnesium 2.2 Total Bilirubin 1.8 H AST 50 ALT 43 Alkaline Phosphatase 44 Total Creatine Kinase CK-MB (Mass) Troponin I, Quant Total Protein 7.0 Albumin 3.6 Globulin 3.4 Albumin/Globulin Ratio 1.1 11/21/16 11:55 WBC RBC Hgb Hct MCV MCH MCHC RDW Plt Count MPV Neut % (Auto) Lymph % (Auto) Casey % (Auto) Eos % (Auto) Baso % (Auto) Neut # Lymph # Casey # Eos # Baso # Sodium Potassium Chloride Carbon Dioxide Anion Gap BUN Creatinine Est GFR ( Amer) Est GFR (Non-Af Amer) POC Glucose (mg/dL) 178 H Random Glucose Hemoglobin A1c Calcium Phosphorus Magnesium Total Bilirubin AST ALT Alkaline Phosphatase Total Creatine Kinase CK-MB (Mass) Troponin I, Quant Total Protein Albumin Globulin Albumin/Globulin Ratio EKG/Cardiology Studies: Cardiology / EKG Studies 11/20/16 17:28 EKG [ELECTROCARDIOGRAM] Stat Comment: Mode Of Transportation: PORTABLE Reason For Exam: evaluation of rhythm Critical Care Progress Note - Nutrition Nutrition: Nutrition Category Date Time Status Heart Healthy Diet [DIET] Diets 11/21/16 Breakfast Active NPO Diet [DIET] Diets 11/22/16 Breakfast Active
[2016-11-21] MEDS: (Novolog) Insulin Aspart, Recombinant 100 u/ml 10 ml vial SC SCH ×4 (08:53→22:02)
[2016-11-21] MEDS: Pantoprazole 40 mg EC Tab PO SCH (10:25)
[2016-11-21] MEDS: Enoxaparin 120 mg Syringe SC SCH ×2 (10:25→22:01)
--- NOTE | 2016-11-21 17:18 | CP.PCM.CON ---
<Ynes Hernández - Last Filed: 11/21/16 17:14> History of Present Illness - History of Present Illness History of Present Illness: Cardiology ( EP) consult note for Dr Euceda. Reason for consult: v tach Patient is a 66 y/o with PMH of htn, DM whom initially presented with left sided chest pain, found to have STEMI in anterior leads with 99% occlusion of mid LAD s/p PCI with [facility] on 11/18, and 95% occlusion of the proximal LPDA awaiting transfer for PCI. EP cardiology is being consulted due to v-tach patient sustained on 11/19 after cardiac cath. Patient is currently on lidocaine and amiodorone drip. Patient currently denies cp. Patient admits to mild shortness of breath. Denies palpitations, n/v/d, denies dizziness. PMH: HTN, DM PSH: FMH: Mom from heart disease, brother has IA with CAD/stents. Social: denies alcohol, tobacco or illicit drug use. Allergy: NKDA Home meds : see emr for full list. Review of Systems - Review of Systems All systems: reviewed and no additional remarkable complaints except Review of Systems: As mentioned in HPI. Past Patient History - Past Social History Smoking Status: Never Smoked Alcohol: None Drugs: Denies Home Situation {Lives}: With Family - CARDIAC Hx Hypertension: Yes - PULMONARY Hx Respiratory Disorders: No - NEUROLOGICAL Hx Neurological Disorder: No - HEENT Hx HEENT Problems: No - RENAL Hx Kidney Stones: Yes - MUSCULOSKELETAL/RHEUMATOLOGICAL Hx Falls: No - GASTROINTESTINAL Hx Fatty Liver Disease: Yes Other/Comment: fatty spleen - PSYCHIATRIC Hx Substance Use: No - SURGICAL HISTORY Hx Cholecystectomy: Yes Meds Allergies/Adverse Reactions: Allergies Allergy/AdvReac Type Severity Reaction Status Date / Time No Known Allergies Allergy Unverified 11/17/16 21:55 - Medications Medications: Current Medications Aspirin (Ecotrin) 81 mg PO DAILY [facility] Last Admin: 11/21/16 10:25 Dose: 81 mg Docusate Sodium (Colace) 100 mg PO BID [facility] Last Admin: 11/21/16 10:25 Dose: 100 mg Enoxaparin Sodium (Lovenox) 110 mg SC Q12 [facility] Last Admin: 11/21/16 10:25 Dose: 110 mg Lidocaine HCl/Dextrose (Lidocaine 2 Grams In D5w) 500 mls @ 30 mls/hr IV .[id number] [facility] PRN Reason: 2 MG/MIN Last Admin: 11/21/16 05:00 Dose: 30 mls/hr Amiodarone HCl 900 mg/ (Dextrose) 500 mls @ 33.33 mls/hr IV .Q15H1M [facility] PRN Reason: 1 MG/MIN Last Admin: 11/21/16 10:58 Dose: 33.33 mls/hr Insulin Aspart (Novolog) 0 unit SC ACHS [facility] PRN Reason: Protocol Last Admin: 11/21/16 12:05 Dose: 1 unit Metoprolol Tartrate (Lopressor) 12.5 mg PO BID [facility] Last Admin: 11/21/16 10:25 Dose: 12.5 mg Ondansetron HCl (Zofran Inj) 4 mg IVP Q6 PRN PRN Reason: Nausea/Vomiting Last Admin: 11/20/16 22:09 Dose: 4 mg Pantoprazole Sodium (Protonix Ec Tab) 40 mg PO DAILY [facility] Last Admin: 11/21/16 10:25 Dose: 40 mg Rosuvastatin Calcium (Crestor) 10 mg PO HS [facility] Last Admin: 11/20/16 22:08 Dose: 10 mg Ticagrelor (Brilinta) 90 mg PO BID [facility] Last Admin: 11/21/16 10:25 Dose: 90 mg Zolpidem Tartrate (Ambien) 5 mg PO HS PRN PRN Reason: Insomnia Last Admin: 11/20/16 22:08 Dose: 5 mg Physical Exam - Constitutional Appears: No Acute Distress - Head Exam Head Exam: ATRAUMATIC, NORMAL INSPECTION, NORMOCEPHALIC - Eye Exam Eye Exam: EOMI, Normal appearance, PERRL. absent: Scleral icterus - ENT Exam ENT Exam: Mucous Membranes Moist - Neck Exam Neck exam: Positive for: Normal Inspection - Respiratory Exam Respiratory Exam: Clear to Auscultation Bilateral, NORMAL BREATHING PATTERN. absent: Rales, Rhonchi, Wheezes, Respiratory Distress, Stridor - Cardiovascular Exam Cardiovascular Exam: REGULAR RHYTHM, RRR, +S1, +S2 - GI/Abdominal Exam GI & Abdominal Exam: Normal Bowel Sounds, Soft. absent: Distended, Guarding, Tenderness (obese abdomen ) - Extremities Exam Extremities exam: Positive for: normal inspection. Negative for: pedal edema - Neurological Exam Neurological exam: Alert, Oriented x3 - Psychiatric Exam Psychiatric exam: Normal Affect, Normal Mood - Skin Skin Exam: Dry, Intact, Normal Color, Warm Results - Vital Signs Recent Vital Signs: Last Vital Signs Temp 100.3 F H 11/21/16 12:00 Pulse 71 11/21/16 15:00 Resp 26 H 11/21/16 15:00 BP 111/67 11/21/16 15:00 Pulse Ox 94 L 11/21/16 15:00 - Labs Result Diagrams: 11/21/16 06:47 11/21/16 04:00 Labs: Laboratory Results - last 24 hr 11/20/16 11/20/16 11/21/16 19:47 20:59 04:00 WBC RBC Hgb Hct MCV MCH MCHC RDW Plt Count MPV Neut % (Auto) Lymph % (Auto) [place] % (Auto) Eos % (Auto) Baso % (Auto) Neut # Lymph # [place] # Eos # Baso # Sodium 135 Potassium 4.1 Chloride 99 Carbon Dioxide 24 Anion Gap 16 BUN 17 Creatinine 1.1 Est GFR ( Amer) > 60 Est GFR (Non-Af Amer) > 60 POC Glucose (mg/dL) 199 H Random Glucose 161 H Hemoglobin A1c Calcium 8.2 L Phosphorus 2.9 Magnesium 2.2 Total Bilirubin 1.8 H AST 50 ALT 43 Alkaline Phosphatase 44 Total Creatine Kinase 255 H CK-MB (Mass) 2.91 Troponin I, Quant 15.2000 H* Total Protein 7.0 Albumin 3.6 Globulin 3.4 Albumin/Globulin Ratio 1.1 11/21/16 11/21/16 11/21/16 06:47 08:22 11:55 WBC 10.7 RBC 4.66 Hgb 13.5 Hct 39.0 MCV 83.7 MCH 29.0 MCHC 34.6 RDW 13.6 Plt Count 190 MPV 7.7 Neut % (Auto) 76.0 H Lymph % (Auto) 14.3 L [place] % (Auto) 8.9 Eos % (Auto) 0.1 Baso % (Auto) 0.7 Neut # 8.1 H Lymph # 1.5 [place] # 0.9 H Eos # 0.0 Baso # 0.1 Sodium Potassium Chloride Carbon Dioxide Anion Gap BUN Creatinine Est GFR ( Amer) Est GFR (Non-Af Amer) POC Glucose (mg/dL) 153 H 178 H Random Glucose Hemoglobin A1c 7.0 H Calcium Phosphorus Magnesium Total Bilirubin AST ALT Alkaline Phosphatase Total Creatine Kinase CK-MB (Mass) Troponin I, Quant Total Protein Albumin Globulin Albumin/Globulin Ratio 11/21/16 16:11 WBC RBC Hgb Hct MCV MCH MCHC RDW Plt Count MPV Neut % (Auto) Lymph % (Auto) [place] % (Auto) Eos % (Auto) Baso % (Auto) Neut # Lymph # [place] # Eos # Baso # Sodium Potassium Chloride Carbon Dioxide Anion Gap BUN Creatinine Est GFR ( Amer) Est GFR (Non-Af Amer) POC Glucose (mg/dL) 181 H Random Glucose Hemoglobin A1c Calcium Phosphorus Magnesium Total Bilirubin AST ALT Alkaline Phosphatase Total Creatine Kinase CK-MB (Mass) Troponin I, Quant Total Protein Albumin Globulin Albumin/Globulin Ratio Assessment & Plan - Assessment and Plan (Free Text) Assessment: Patient is a 66 y/o with PMH of DM, htn admitted with: 1) Ventricular tachycardia- likely reentrant arrhythmia 2) STEMI with 99% occlusion of mid LAD s/p PCI with [facility] on 11/18, With 95% occlusion of the proximal LPDA pending PCI, LVEF of 50%, with anterior septal hypokinesis. 3) DM 4) HTN Plan: Continue amiodorone and lidocaine drip for sodium and k+ channel blockade To prevent sudden cardiac , patient will need life vest. Continue brillinta, statin, bb. Patient seen, examined, case discussed with Dr Euceda. - Date & Time Date: 11/21/16 Time: 16:40 <Jovanni Euceda - Last Filed: 11/23/16 09:17> Results - Vital Signs Recent Vital Signs: Last Vital Signs Temp 98.1 F 11/22/16 08:00 Pulse 67 11/22/16 09:00 Resp 23 11/22/16 09:00 BP 124/82 11/22/16 08:45 Pulse Ox 96 11/22/16 09:00 - Labs Result Diagrams: 11/22/16 05:48 11/22/16 05:48 Attending/Attestation - Attestation I have personally seen and examined this patient.: Yes I have fully participated in the care of the patient.: Yes I have reviewed all pertinent clinical information: Yes Notes (Text): 11/23/16 09:16 continue amio and lidocaine IV tx to [facility] [place] for PCI circ
--- NOTE | 2016-11-21 17:27 | CP.PCM.PN ---
Subjective - Date & Time of Evaluation Date of Evaluation: 11/21/16 Time of Evaluation: 01:40 - Subjective Subjective: clinically same Objective - Vital Signs/Intake and Output Vital Signs (last 24 hours): Temp Pulse Resp BP Pulse Ox 100.3 F H 71 26 H 111/67 94 L 11/21/16 12:00 11/21/16 15:00 11/21/16 15:00 11/21/16 15:00 11/21/16 15:00 Intake and Output: 11/21/16 11/21/16 06:59 18:59 Intake Total 759.6 1359.7 Output Total 1000 351 Balance -240.4 1008.7 - Medications Medications: Current Medications Aspirin (Ecotrin) 81 mg PO DAILY [facility] Last Admin: 11/21/16 10:25 Dose: 81 mg Docusate Sodium (Colace) 100 mg PO BID [facility] Last Admin: 11/21/16 10:25 Dose: 100 mg Enoxaparin Sodium (Lovenox) 110 mg SC Q12 [facility] Last Admin: 11/21/16 10:25 Dose: 110 mg Lidocaine HCl/Dextrose (Lidocaine 2 Grams In D5w) 500 mls @ 30 mls/hr IV .[id number] [facility] PRN Reason: 2 MG/MIN Last Admin: 11/21/16 05:00 Dose: 30 mls/hr Amiodarone HCl 900 mg/ (Dextrose) 500 mls @ 33.33 mls/hr IV .Q15H1M [facility] PRN Reason: 1 MG/MIN Last Admin: 11/21/16 10:58 Dose: 33.33 mls/hr Insulin Aspart (Novolog) 0 unit SC ACHS [facility] PRN Reason: Protocol Last Admin: 11/21/16 12:05 Dose: 1 unit Metoprolol Tartrate (Lopressor) 12.5 mg PO BID [facility] Last Admin: 11/21/16 10:25 Dose: 12.5 mg Ondansetron HCl (Zofran Inj) 4 mg IVP Q6 PRN PRN Reason: Nausea/Vomiting Last Admin: 11/20/16 22:09 Dose: 4 mg Pantoprazole Sodium (Protonix Ec Tab) 40 mg PO DAILY [facility] Last Admin: 11/21/16 10:25 Dose: 40 mg Rosuvastatin Calcium (Crestor) 10 mg PO HS [facility] Last Admin: 11/20/16 22:08 Dose: 10 mg Ticagrelor (Brilinta) 90 mg PO BID [facility] Last Admin: 11/21/16 10:25 Dose: 90 mg Zolpidem Tartrate (Ambien) 5 mg PO HS PRN PRN Reason: Insomnia Last Admin: 11/20/16 22:08 Dose: 5 mg - Labs Labs: 11/21/16 06:47 11/21/16 04:00 PT 12.0 SECONDS (9.7-12.2) 11/17/16 22:01 INR 1.1 11/17/16 22:01 APTT 30 SECONDS (21-34) 11/17/16 22:01 - Constitutional Appears: Well - Head Exam Head Exam: ATRAUMATIC, NORMAL INSPECTION, NORMOCEPHALIC - Eye Exam Eye Exam: EOMI, Normal appearance, PERRL Pupil Exam: NORMAL ACCOMODATION, PERRL - ENT Exam ENT Exam: Mucous Membranes Moist, Normal Exam - Neck Exam Neck Exam: Full ROM, Normal Inspection. absent: Lymphadenopathy - Respiratory Exam Respiratory Exam: Decreased Breath Sounds - Cardiovascular Exam Cardiovascular Exam: REGULAR RHYTHM, +S1, +S2 - GI/Abdominal Exam GI & Abdominal Exam: Soft, Diminished Bowel Sounds - Rectal Exam Rectal Exam: Deferred
[2016-11-22 05:50] LABS: BASO # 0.1 K/uL (0.0-0.2); EOS # 0.1 K/uL (0.0-0.7); EOS % 0.6 % (0.0-4.0); HEMATOCRIT 39.4 % (35.0-51.0); LYMPH # 1.2 K/uL (1.0-4.3); LYMPH % 12.9 % (20.0-40.0); MEAN CORPUSCULAR HEMOGLOBIN 28.3 pg (27.0-31.0); MEAN CORPUSCULAR HGB CONC 33.7 g/dL (33.0-37.0); MEAN PLATELET VOLUME 7.9 fL (7.2-11.7); MONO # 1.1 K/uL (0.0-0.8); MONO % 10.9 % (0.0-10.0); NRBC % 0.3 % (0.0-2.0); RED CELL DISTRIBUTION WIDTH 13.7 % (11.5-14.5); WHITE BLOOD COUNT 9.7 K/uL (4.8-10.8)
[2016-11-22 05:58] LABS: INR 1.1
[2016-11-22 06:09] LABS: CHLORIDE 96 mmol/L (98-107)
[2016-11-22 06:10] LABS: SODIUM 135 mmol/L (132-148)
[2016-11-22 06:11] LABS: POTASSIUM 3.9 mmol/L (3.6-5.2)
[2016-11-22 06:13] LABS: ALB/GLOB RATIO 1.2 (1.0-2.1); ALKALINE PHOSPHATASE 47 U/L (38-126); ALT/SGPT 38 U/L (21-72); AST/SGOT 34 U/L (17-59); BILIRUBIN,TOTAL 1.4 mg/dL (0.2-1.3); BLOOD UREA NITROGEN 19 mg/dL (9-20); CARBON DIOXIDE 27 mmol/L (22-30); GFR AFRICAN-AMERICAN > 60; GLUCOSE,RANDOM 155 mg/dL (75-110); TOTAL PROTEIN 6.6 g/dL (6.3-8.3)
[2016-11-22 06:14] LABS: CALCIUM 7.8 mg/dl (8.6-10.4); MAGNESIUM 2.1 mg/dL (1.6-2.3)
--- NOTE | 2016-11-22 06:55 | CP.CCUPN ---
<StephanieMikelennie - Last Filed: 11/22/16 11:29> CCU Subjective - Physician Review Subjective (Free Text): 11/21/16 09:43 Pt seen and examined in no acute distress. Patient states that he does not have any chest pain or palpitations but he does complain of nausea, vomiting and restlessness overnight. Pt does not have much of an appetite either. Pt seen by Dr. Barnes (Cardiology ) this morning. Pt denies and headaches, subjective fevers or chills, diarrhea, constipation or paresthesias at this time. 11/22/16 11:29 Pt seen and examined in no acute distress. No significant events overnight per nursing. Patient anticipating PCI procedure at [facility] later this morning. Patient had low grade fever overnight which resolved. Pt appeared restless. Pt denied headaches, chills, diarrhea, constipation, chest pain, palpitations or paresthesias at this time. CCU Objective - Vital Signs / Intake & Output Vital Signs (Last 4 hours): Vital Signs Temp Pulse Resp BP Pulse Ox 11/22/16 05:45 70 18 101/62 95 11/22/16 05:10 99/65 L 11/22/16 05:06 69 24 96 11/22/16 05:00 70 23 95 11/22/16 04:56 122/75 11/22/16 04:10 72 22 122/75 96 11/22/16 04:00 98.8 F 71 23 94 L 11/22/16 03:12 71 14 100/69 96 11/22/16 03:00 73 24 94 L Intake and Output (Last 8hrs): Intake & Output 11/21/16 11/21/16 11/22/16 14:59 22:59 06:59 Intake Total 1186.4 1106.4 506.4 Output Total 351 325 550 Balance 835.4 781.4 -43.6 Weight 253 lb 1.451 oz Intake: Intake, IV Amount 506.4 506.4 506.4 Right Forearm 266.4 266.4 266.4 Rt forearm side port 240 240 240 Oral 680 600 0 Output: Urine 350 325 550 Urine, Voided 350 325 550 Stool 1 - Physical Exam Head: Positive for: Atraumatic, Normocephalic Pupils: Positive for: PERRL Extroacular Muscles: Positive for: EOMI Mouth: Positive for: Moist Mucous Membranes Neck: Positive for: Normal Range of Motion Respiratory/Chest: Positive for: Clear to Auscultation Cardiovascular: Positive for: Normal S1, S2 Abdomen: Positive for: Distention, Normal Bowel Sounds. Negative for: Tenderness, Peritoneal Signs Upper Extremity: Positive for: Normal Inspection Lower Extremity: Positive for: Normal Inspection Neurological: Positive for: CN II-XII Intact Skin: Positive for: Warm, Dry Psychiatric: Positive for: Alert, Oriented x 3, Normal Insight, Normal Concentration - Medications Active Medications: Active Medications Generic Name Dose Route Start Last Admin Trade Name Freq PRN Reason Stop Dose Admin Aspirin 81 mg 11/18/16 10:00 11/21/16 10:25 Ecotrin PO 81 mg DAILY WILY Administration Docusate Sodium 100 mg 11/18/16 10:00 11/21/16 17:47 Colace PO 100 mg BID WILY Administration Enoxaparin Sodium 110 mg 11/19/16 10:00 11/21/16 22:01 Lovenox SC 110 mg Q12 WILY Administration Lidocaine HCl/Dextrose 500 mls @ 30 mls/hr 11/19/16 18:00 11/21/16 22:04 Lidocaine 2 Grams In D5w IV 30 mls/hr .[id number] WILY Administration 2 MG/MIN Amiodarone HCl 900 mg/ 500 mls @ 33.33 mls/hr 11/19/16 23:00 11/22/16 02:51 Dextrose IV 33.33 mls/hr .[id number] WILY Administration 1 MG/MIN Insulin Aspart 0 unit 11/20/16 11:30 11/21/16 22:02 Novolog SC Not Given ACHS WILY Protocol Metoprolol Tartrate 12.5 mg 11/18/16 10:00 11/21/16 17:47 Lopressor PO 12.5 mg BID WILY Administration Ondansetron HCl 4 mg 11/20/16 19:56 11/20/16 22:09 Zofran Inj IVP 4 mg Q6 PRN Administration Nausea/Vomiting Pantoprazole Sodium 40 mg 11/18/16 10:00 11/21/16 10:25 Protonix Ec Tab PO 40 mg DAILY WILY Administration Rosuvastatin Calcium 10 mg 11/18/16 22:00 11/21/16 22:00 Crestor PO 10 mg HS WILY Administration Ticagrelor 90 mg 11/18/16 10:00 11/21/16 17:47 Brilinta PO 90 mg BID WILY Administration Zolpidem Tartrate 5 mg 11/19/16 21:20 11/21/16 22:00 Ambien PO 5 mg HS PRN Administration Insomnia - Patient Studies Lab Studies: Lab Studies 11/22/16 11/21/16 11/21/16 Range/Units 05:48 21:20 16:11 WBC 9.7 (4.8-10.8) K/uL RBC 4.69 (4.40-5.90) Mil/uL Hgb 13.3 (12.0-18.0) g/dL Hct 39.4 (35.0-51.0) % MCV 84.0 (80.0-94.0) fL MCH 28.3 (27.0-31.0) pg MCHC 33.7 (33.0-37.0) g/dL RDW 13.7 (11.5-14.5) % Plt Count 182 (130-400) K/uL MPV 7.9 (7.2-11.7) fL Neut % (Auto) 74.6 (50.0-75.0) % Lymph % (Auto) 12.9 L (20.0-40.0) % [place] % (Auto) 10.9 H (0.0-10.0) % Eos % (Auto) 0.6 (0.0-4.0) % Baso % (Auto) 1.0 (0.0-2.0) % Neut # 7.2 H (1.8-7.0) K/uL Lymph # 1.2 (1.0-4.3) K/uL [place] # 1.1 H (0.0-0.8) K/uL Eos # 0.1 (0.0-0.7) K/uL Baso # 0.1 (0.0-0.2) K/uL PT 12.7 H (9.7-12.2) SECONDS INR 1.1 APTT 34 (21-34) SECONDS Sodium 135 (132-148) mmol/L Potassium 3.9 (3.6-5.2) mmol/L Chloride 96 L (98-107) mmol/L Carbon Dioxide 27 (22-30) mmol/L Anion Gap 16 (10-20) BUN 19 (9-20) mg/dL Creatinine 1.1 (0.8-1.5) MG/DL Est GFR ( Amer) > 60 Est GFR (Non-Af Amer) > 60 POC Glucose (mg/dL) 161 H 181 H (65-110) mg/dL Random Glucose 155 H (75-110) mg/dL Hemoglobin A1c (4.2-6.5) % Calcium 7.8 L (8.6-10.4) mg/dl Phosphorus 3.0 (2.5-4.5) mg/dL Magnesium 2.1 (1.6-2.3) mg/dL Total Bilirubin 1.4 H (0.2-1.3) mg/dL AST 34 (17-59) U/L ALT 38 (21-72) U/L Alkaline Phosphatase 47 (38-126) U/L Total Protein 6.6 (6.3-8.3) g/dL Albumin 3.6 (3.5-5.0) g/dL Globulin 3.0 (2.2-3.9) gm/dL Albumin/Globulin Ratio 1.2 (1.0-2.1) 11/21/16 11/21/16 11/21/16 Range/Units 11:55 08:22 06:47 WBC 10.7 (4.8-10.8) K/uL RBC 4.66 (4.40-5.90) Mil/uL Hgb 13.5 (12.0-18.0) g/dL Hct 39.0 (35.0-51.0) % MCV 83.7 (80.0-94.0) fL MCH 29.0 (27.0-31.0) pg MCHC 34.6 (33.0-37.0) g/dL RDW 13.6 (11.5-14.5) % Plt Count 190 (130-400) K/uL MPV 7.7 (7.2-11.7) fL Neut % (Auto) 76.0 H (50.0-75.0) % Lymph % (Auto) 14.3 L (20.0-40.0) % [place] % (Auto) 8.9 (0.0-10.0) % Eos % (Auto) 0.1 (0.0-4.0) % Baso % (Auto) 0.7 (0.0-2.0) % Neut # 8.1 H (1.8-7.0) K/uL Lymph # 1.5 (1.0-4.3) K/uL [place] # 0.9 H (0.0-0.8) K/uL Eos # 0.0 (0.0-0.7) K/uL Baso # 0.1 (0.0-0.2) K/uL PT (9.7-12.2) SECONDS INR APTT (21-34) SECONDS Sodium (132-148) mmol/L Potassium (3.6-5.2) mmol/L Chloride (98-107) mmol/L Carbon Dioxide (22-30) mmol/L Anion Gap (10-20) BUN (9-20) mg/dL Creatinine (0.8-1.5) MG/DL Est GFR ( Amer) Est GFR (Non-Af Amer) POC Glucose (mg/dL) 178 H 153 H (65-110) mg/dL Random Glucose (75-110) mg/dL Hemoglobin A1c 7.0 H (4.2-6.5) % Calcium (8.6-10.4) mg/dl Phosphorus (2.5-4.5) mg/dL Magnesium (1.6-2.3) mg/dL Total Bilirubin (0.2-1.3) mg/dL AST (17-59) U/L ALT (21-72) U/L Alkaline Phosphatase (38-126) U/L Total Protein (6.3-8.3) g/dL Albumin (3.5-5.0) g/dL Globulin (2.2-3.9) gm/dL Albumin/Globulin Ratio (1.0-2.1) 11/21/16 Range/Units 04:00 WBC (4.8-10.8) K/uL RBC (4.40-5.90) Mil/uL Hgb (12.0-18.0) g/dL Hct (35.0-51.0) % MCV (80.0-94.0) fL MCH (27.0-31.0) pg MCHC (33.0-37.0) g/dL RDW (11.5-14.5) % Plt Count (130-400) K/uL MPV (7.2-11.7) fL Neut % (Auto) (50.0-75.0) % Lymph % (Auto) (20.0-40.0) % [place] % (Auto) (0.0-10.0) % Eos % (Auto) (0.0-4.0) % Baso % (Auto) (0.0-2.0) % Neut # (1.8-7.0) K/uL Lymph # (1.0-4.3) K/uL [place] # (0.0-0.8) K/uL Eos # (0.0-0.7) K/uL Baso # (0.0-0.2) K/uL PT (9.7-12.2) SECONDS INR APTT (21-34) SECONDS Sodium 135 (132-148) mmol/L Potassium 4.1 (3.6-5.2) mmol/L Chloride 99 (98-107) mmol/L Carbon Dioxide 24 (22-30) mmol/L Anion Gap 16 (10-20) BUN 17 (9-20) mg/dL Creatinine 1.1 (0.8-1.5) MG/DL Est GFR ( Amer) > 60 Est GFR (Non-Af Amer) > 60 POC Glucose (mg/dL) (65-110) mg/dL Random Glucose 161 H (75-110) mg/dL Hemoglobin A1c (4.2-6.5) % Calcium 8.2 L (8.6-10.4) mg/dl Phosphorus 2.9 (2.5-4.5) mg/dL Magnesium 2.2 (1.6-2.3) mg/dL Total Bilirubin 1.8 H (0.2-1.3) mg/dL AST 50 (17-59) U/L ALT 43 (21-72) U/L Alkaline Phosphatase 44 (38-126) U/L Total Protein 7.0 (6.3-8.3) g/dL Albumin 3.6 (3.5-5.0) g/dL Globulin 3.4 (2.2-3.9) gm/dL Albumin/Globulin Ratio 1.1 (1.0-2.1) Laboratory Results - last 24 hr 11/21/16 11/21/16 11/21/16 04:00 06:47 08:22 WBC 10.7 RBC 4.66 Hgb 13.5 Hct 39.0 MCV 83.7 MCH 29.0 MCHC 34.6 RDW 13.6 Plt Count 190 MPV 7.7 Neut % (Auto) 76.0 H Lymph % (Auto) 14.3 L [place] % (Auto) 8.9 Eos % (Auto) 0.1 Baso % (Auto) 0.7 Neut # 8.1 H Lymph # 1.5 [place] # 0.9 H Eos # 0.0 Baso # 0.1 PT INR APTT Sodium 135 Potassium 4.1 Chloride 99 Carbon Dioxide 24 Anion Gap 16 BUN 17 Creatinine 1.1 Est GFR ( Amer) > 60 Est GFR (Non-Af Amer) > 60 POC Glucose (mg/dL) 153 H Random Glucose 161 H Hemoglobin A1c 7.0 H Calcium 8.2 L Phosphorus 2.9 Magnesium 2.2 Total Bilirubin 1.8 H AST 50 ALT 43 Alkaline Phosphatase 44 Total Protein 7.0 Albumin 3.6 Globulin 3.4 Albumin/Globulin Ratio 1.1 11/21/16 11/21/16 11/21/16 11:55 16:11 21:20 WBC RBC Hgb Hct MCV MCH MCHC RDW Plt Count MPV Neut % (Auto) Lymph % (Auto) [place] % (Auto) Eos % (Auto) Baso % (Auto) Neut # Lymph # [place] # Eos # Baso # PT INR APTT Sodium Potassium Chloride Carbon Dioxide Anion Gap BUN Creatinine Est GFR ( Amer) Est GFR (Non-Af Amer) POC Glucose (mg/dL) 178 H 181 H 161 H Random Glucose Hemoglobin A1c Calcium Phosphorus Magnesium Total Bilirubin AST ALT Alkaline Phosphatase Total Protein Albumin Globulin Albumin/Globulin Ratio 11/22/16 05:48 WBC 9.7 RBC 4.69 Hgb 13.3 Hct 39.4 MCV 84.0 MCH 28.3 MCHC 33.7 RDW 13.7 Plt Count 182 MPV 7.9 Neut % (Auto) 74.6 Lymph % (Auto) 12.9 L [place] % (Auto) 10.9 H Eos % (Auto) 0.6 Baso % (Auto) 1.0 Neut # 7.2 H Lymph # 1.2 [place] # 1.1 H Eos # 0.1 Baso # 0.1 PT 12.7 H INR 1.1 APTT 34 Sodium 135 Potassium 3.9 Chloride 96 L Carbon Dioxide 27 Anion Gap 16 BUN 19 Creatinine 1.1 Est GFR ( Amer) > 60 Est GFR (Non-Af Amer) > 60 POC Glucose (mg/dL) Random Glucose 155 H Hemoglobin A1c Calcium 7.8 L Phosphorus 3.0 Magnesium 2.1 Total Bilirubin 1.4 H AST 34 ALT 38 Alkaline Phosphatase 47 Total Protein 6.6 Albumin 3.6 Globulin 3.0 Albumin/Globulin Ratio 1.2 Fingerstick Blood Sugar Results: 161 Review of Systems - Review of Systems Review of Systems: as noted in subjective Critical Care Progress Note - Nutrition Nutrition: Nutrition Category Date Time Status NPO Diet [DIET] Diets 11/22/16 Breakfast Active Assessment/Plan - Assessment and Plan (Free Text) Assessment: 66 yo M with medical history significant for hypertension and hyperlipidemia who presented to the emergency department with chest pain after eating a large steak dinner in [place]. Patient states that the pain was sharp rated 8.5/10 intensity radiating from the sternum to his left arm. Patient admits to associated nausea and diaphoresis. Initial blood pressure was elevated 160/100 and patient was given ASA 325 mg po, Morphine 6 mg IVP and nitro paste, which improved pressure to 140/90. Troponin was positive 0.2350 and patient was admitted for NSTEMI as initial EKG did not show ST elevations. Later during emergency room course, patient had an episode of emesis and repeat EKG was significant for ST elevations to V2-6. Code heart was called. s/p stent LAD, and critical stenosis of the LPDA. Patient went into ventricular tachycardia status post cardioversion 2 and started on amiodarone drip. Stable at this time awaiting transfer to [facility]. Plan: Neuro: Alert and oriented 3 in no acute apparent distress Cont to monitor Pulm: No acute issues, breathing spontaneously on 2 L nasal cannula. CV: Hemodynamically stable, patient was intermittently in atrial fibrillation with prior runs of vtach (now controlled) with amiodarone drip and lidocaine drip. Cardiology consult Dr. Barnes following- Pt will need transfer to facility with AICD capabilities for better assessment as well as PCI for LPDA 11/22 at [facility]. ASA 81, Lopressor 12.5 mg BID, Brilinta 90 mg PO BID Hem: No acute issues, on therapeutic Lovenox status post stent Renal: No acute issues Bun/Cr stable Endo: Patient is hyperglycemic on short acting insulin sliding scale HgbA1c- 7 Needs better control outpatient. GI: Heart healthy diet Zofran PRN Colace 100 mg PO BID ID: No acute issues DVT proph - therapeutic Lovenox GI proph - Protonix Code status - full code <Eric Macias S - Last Filed: 11/22/16 17:29> CCU Objective - Vital Signs / Intake & Output Intake and Output (Last 8hrs): Intake & Output 11/22/16 11/22/16 11/22/16 06:59 14:59 22:59 Intake Total 506.4 189.9 Output Total 550 400 Balance -43.6 -210.1 Weight 253 lb 1.451 oz Intake: Intake, IV Amount 506.4 189.9 Right Forearm 266.4 99.9 Rt forearm side port 240 90 Oral 0 0 Output: Urine 550 400 Urine, Voided 550 400 - Medications Active Medications: Active Medications Generic Name Dose Route Start Last Admin Trade Name Freq PRN Reason Stop Dose Admin Aspirin 81 mg 11/18/16 10:00 11/22/16 07:03 Ecotrin PO 81 mg DAILY WILY Administration Docusate Sodium 100 mg 11/18/16 10:00 11/22/16 09:20 Colace PO Not Given BID WILY Lidocaine HCl/Dextrose 500 mls @ 30 mls/hr 11/19/16 18:00 11/21/16 22:04 Lidocaine 2 Grams In D5w IV 30 mls/hr .[id number] WILY Administration 2 MG/MIN Amiodarone HCl 900 mg/ 500 mls @ 33.33 mls/hr 11/19/16 23:00 11/22/16 02:51 Dextrose IV 33.33 mls/hr .Q15H1M WILY Administration 1 MG/MIN Insulin Aspart 0 unit 11/20/16 11:30 11/22/16 07:40 Novolog SC Not Given ACHS WILY Protocol Metoprolol Tartrate 12.5 mg 11/18/16 10:00 11/22/16 07:05 Lopressor PO 12.5 mg BID WILY Administration Ondansetron HCl 4 mg 11/20/16 19:56 11/20/16 22:09 Zofran Inj IVP 4 mg Q6 PRN Administration Nausea/Vomiting Pantoprazole Sodium 40 mg 11/18/16 10:00 11/22/16 07:03 Protonix Ec Tab PO 40 mg DAILY WILY Administration Rosuvastatin Calcium 10 mg 11/18/16 22:00 11/21/16 22:00 Crestor PO 10 mg HS WILY Administration Ticagrelor 90 mg 11/18/16 10:00 11/22/16 07:04 Brilinta PO 90 mg BID WILY Administration Zolpidem Tartrate 5 mg 11/19/16 21:20 11/21/16 22:00 Ambien PO 5 mg HS PRN Administration Insomnia - Patient Studies Lab Studies: Lab Studies 11/22/16 11/22/16 11/21/16 Range/Units 07:14 05:48 21:20 WBC 9.7 (4.8-10.8) K/uL RBC 4.69 (4.40-5.90) Mil/uL Hgb 13.3 (12.0-18.0) g/dL Hct 39.4 (35.0-51.0) % MCV 84.0 (80.0-94.0) fL MCH 28.3 (27.0-31.0) pg MCHC 33.7 (33.0-37.0) g/dL RDW 13.7 (11.5-14.5) % Plt Count 182 (130-400) K/uL MPV 7.9 (7.2-11.7) fL Neut % (Auto) 74.6 (50.0-75.0) % Lymph % (Auto) 12.9 L (20.0-40.0) % [place] % (Auto) 10.9 H (0.0-10.0) % Eos % (Auto) 0.6 (0.0-4.0) % Baso % (Auto) 1.0 (0.0-2.0) % Neut # 7.2 H (1.8-7.0) K/uL Lymph # 1.2 (1.0-4.3) K/uL [place] # 1.1 H (0.0-0.8) K/uL Eos # 0.1 (0.0-0.7) K/uL Baso # 0.1 (0.0-0.2) K/uL PT 12.7 H (9.7-12.2) SECONDS INR 1.1 APTT 34 (21-34) SECONDS Sodium 135 (132-148) mmol/L Potassium 3.9 (3.6-5.2) mmol/L Chloride 96 L (98-107) mmol/L Carbon Dioxide 27 (22-30) mmol/L Anion Gap 16 (10-20) BUN 19 (9-20) mg/dL Creatinine 1.1 (0.8-1.5) MG/DL Est GFR ( Amer) > 60 Est GFR (Non-Af Amer) > 60 POC Glucose (mg/dL) 157 H 161 H (65-110) mg/dL Random Glucose 155 H (75-110) mg/dL Calcium 7.8 L (8.6-10.4) mg/dl Phosphorus 3.0 (2.5-4.5) mg/dL Magnesium 2.1 (1.6-2.3) mg/dL Total Bilirubin 1.4 H (0.2-1.3) mg/dL AST 34 (17-59) U/L ALT 38 (21-72) U/L Alkaline Phosphatase 47 (38-126) U/L Total Protein 6.6 (6.3-8.3) g/dL Albumin 3.6 (3.5-5.0) g/dL Globulin 3.0 (2.2-3.9) gm/dL Albumin/Globulin Ratio 1.2 (1.0-2.1) Laboratory Results - last 24 hr 11/21/16 11/22/16 11/22/16 21:20 05:48 07:14 WBC 9.7 RBC 4.69 Hgb 13.3 Hct 39.4 MCV 84.0 MCH 28.3 MCHC 33.7 RDW 13.7 Plt Count 182 MPV 7.9 Neut % (Auto) 74.6 Lymph % (Auto) 12.9 L [place] % (Auto) 10.9 H Eos % (Auto) 0.6 Baso % (Auto) 1.0 Neut # 7.2 H Lymph # 1.2 [place] # 1.1 H Eos # 0.1 Baso # 0.1 PT 12.7 H INR 1.1 APTT 34 Sodium 135 Potassium 3.9 Chloride 96 L Carbon Dioxide 27 Anion Gap 16 BUN 19 Creatinine 1.1 Est GFR ( Amer) > 60 Est GFR (Non-Af Amer) > 60 POC Glucose (mg/dL) 161 H 157 H Random Glucose 155 H Calcium 7.8 L Phosphorus 3.0 Magnesium 2.1 Total Bilirubin 1.4 H AST 34 ALT 38 Alkaline Phosphatase 47 Total Protein 6.6 Albumin 3.6 Globulin 3.0 Albumin/Globulin Ratio 1.2 Critical Care Progress Note - Nutrition Nutrition: Nutrition Category Date Time Status NPO Diet [DIET] Diets 11/22/16 Breakfast Active Assessment/Plan (1) Acute myocardial infarction Current Visit: Yes Status: Acute Comment: code Heart, status post stent placement LAD, Patient has critical stenosis of the LPDA. Dr Herbert will schedule elective intervention in the future Patient was started on amiodarone drip for ventricular tachycardia status post cardioversion 2 Continue anticoagulation Case discussed with cardiology (2) Ventricular tachycardia Current Visit: Yes Status: Acute Attending/Attestation - Attestation I have personally seen and examined this patient.: Yes I have fully participated in the care of the patient.: Yes I have reviewed all pertinent clinical information: Yes Notes (Text): 11/22/16 17:26 Patient seen and examined in the intensive care unit. Case discussed with house staff in the morning rounds. Patient transferred from [facility] for PCI No further ventricular tachycardia Remains on amiodarone and lidocaine drip
[2016-11-22] MEDS: Pantoprazole 40 mg EC Tab PO SCH ×2 (07:03→20:07)
[2016-11-22 07:22] VITALS: RESP 23
[2016-11-22] MEDS: (Novolog) Insulin Aspart, Recombinant 100 u/ml 10 ml vial SC SCH ×2 (07:40→20:07)
[2016-11-22] MEDS: Enoxaparin 120 mg Syringe SC SCH (09:15)
[2016-11-22 10:00] VITALS: BP 124/82; PULSE 67; TEMP 98.1; O2SAT 96
--- NOTE | 2016-11-22 16:50 | CP.PCM.PN ---
Subjective - Date & Time of Evaluation Date of Evaluation: 11/22/16 Time of Evaluation: 02:00 - Subjective Subjective: clinically same Objective - Vital Signs/Intake and Output Vital Signs (last 24 hours): Temp Pulse Resp BP Pulse Ox 98.1 F 67 23 124/82 96 11/22/16 08:00 11/22/16 09:00 11/22/16 09:00 11/22/16 08:45 11/22/16 09:00 Intake and Output: 11/22/16 11/22/16 06:59 18:59 Intake Total 1129.6 189.9 Output Total 750 400 Balance 379.6 -210.1 - Medications Medications: Current Medications Aspirin (Ecotrin) 81 mg PO DAILY [facility] Last Admin: 11/22/16 07:03 Dose: 81 mg Docusate Sodium (Colace) 100 mg PO BID [facility] Last Admin: 11/22/16 09:20 Dose: Not Given Lidocaine HCl/Dextrose (Lidocaine 2 Grams In D5w) 500 mls @ 30 mls/hr IV .[id number] [facility] PRN Reason: 2 MG/MIN Last Admin: 11/21/16 22:04 Dose: 30 mls/hr Amiodarone HCl 900 mg/ (Dextrose) 500 mls @ 33.33 mls/hr IV .Q15H1M [facility] PRN Reason: 1 MG/MIN Last Admin: 11/22/16 02:51 Dose: 33.33 mls/hr Insulin Aspart (Novolog) 0 unit SC ACHS [facility] PRN Reason: Protocol Last Admin: 11/22/16 07:40 Dose: Not Given Metoprolol Tartrate (Lopressor) 12.5 mg PO BID [facility] Last Admin: 11/22/16 07:05 Dose: 12.5 mg Ondansetron HCl (Zofran Inj) 4 mg IVP Q6 PRN PRN Reason: Nausea/Vomiting Last Admin: 11/20/16 22:09 Dose: 4 mg Pantoprazole Sodium (Protonix Ec Tab) 40 mg PO DAILY [facility] Last Admin: 11/22/16 07:03 Dose: 40 mg Rosuvastatin Calcium (Crestor) 10 mg PO HS [facility] Last Admin: 11/21/16 22:00 Dose: 10 mg Ticagrelor (Brilinta) 90 mg PO BID [facility] Last Admin: 11/22/16 07:04 Dose: 90 mg Zolpidem Tartrate (Ambien) 5 mg PO HS PRN PRN Reason: Insomnia Last Admin: 11/21/16 22:00 Dose: 5 mg - Labs Labs: 11/22/16 05:48 11/22/16 05:48 PT 12.7 SECONDS (9.7-12.2) H 11/22/16 05:48 INR 1.1 11/22/16 05:48 APTT 34 SECONDS (21-34) 11/22/16 05:48 - Constitutional Appears: Well - Head Exam Head Exam: ATRAUMATIC, NORMAL INSPECTION, NORMOCEPHALIC - Eye Exam Eye Exam: EOMI, Normal appearance, PERRL Pupil Exam: NORMAL ACCOMODATION, PERRL - ENT Exam ENT Exam: Mucous Membranes Moist, Normal Exam - Neck Exam Neck Exam: Full ROM, Normal Inspection. absent: Lymphadenopathy - Respiratory Exam Respiratory Exam: Decreased Breath Sounds - Cardiovascular Exam Cardiovascular Exam: REGULAR RHYTHM, +S1, +S2 - GI/Abdominal Exam GI & Abdominal Exam: Soft, Diminished Bowel Sounds - Rectal Exam Rectal Exam: Deferred
[2016-11-22] MEDS: Lidocaine 2 Grams in D5W 500 ML IV SCH (20:06)
--- NOTE | 2016-11-23 08:05 | CARD ---
APPROVED REPORT EKG Measurement Heart [id number] <Conclusion> Normal sinus rhythm Low voltage QRS Septal infarct, recent Abnormal ECG
--- NOTE | 2016-11-23 21:29 | CP.PCM.PN ---
Subjective - Date & Time of Evaluation Date of Evaluation: 11/23/16 Time of Evaluation: 08:00 Objective - Vital Signs/Intake and Output Vital Signs (last 24 hours): Temp Pulse Resp BP Pulse Ox 98.1 F 67 23 124/82 96 11/22/16 08:00 11/22/16 09:00 11/22/16 09:00 11/22/16 08:45 11/22/16 09:00 - Labs Labs: 11/22/16 05:48 11/22/16 05:48 PT 12.7 SECONDS (9.7-12.2) H 11/22/16 05:48 INR 1.1 11/22/16 05:48 APTT 34 SECONDS (21-34) 11/22/16 05:48
--- NOTE | 2016-11-24 13:02 | CARDCATH ---
PROCEDURE DATE: 11/17/2016 PROCEDURE PERFORMED: Left heart catheterization, coronary angiography, left ventriculography, percut aneous coronary intervention of the mid left anterior descending artery in the setting of an acute an terior wall myocardial infarction. COMPLICATIONS: None. HISTORY: The patient is a 66-year-old male who presents with myocardial infarction. He developed ch est pain 1 day prior to admission and recurrent chest pain which began about 8 p.m. He was out to [facility] but then returned to [place]. His initial presentation EKG revealed normal sinus rhythm with out evidence of ST segment elevation. At 11:13 p.m. the patient developed nausea, vomiting and recur rent chest pain. A repeat EKG showed ST segment elevation in anterior leads suggestive of myocardial infarction. Code heart was called. DESCRIPTION OF PROCEDURE: The patient was taken emergently to cardiac catheterization laboratory. H e was prepped and draped in the usual sterile fashion. The right groin was anesthetized with 2% lido zay solution. A 6-Kyrgyz sheath was then inserted into the right common femoral artery via modifie d Seldinger technique. Under fluoroscopic guidance and over a guidewire, a diagnostic Ferny left a nd right coronary catheters were used to perform coronary angiography and left ventriculography. Pul lback pressure was recorded. Coronary intervention was performed as described separately below. FINDINGS: LEFT MAIN: The left main arises from left sinus of Valsalva and bifurcates into left anterior descen ding artery and left circumflex artery. There is a 20% stenosis of the distal vessel. LEFT ANTERIOR DESCENDING ARTERY: Arises from the left main and courses along the anterior interventr icular groove. There is a subtotal occlusion of the mid vessel with large thrombus. There is CATHY g rade I flow. This is the culprit for the patient's acute anterior wall myocardial infarction and is amenable to percutaneous coronary intervention. LEFT CIRCUMFLEX ARTERY: This is a left dominant system. There is mild disease of the proximal circu mflex. The second obtuse marginal artery has a 30% ostial stenosis. There is a 95% stenosis of the left AV groove artery. RIGHT CORONARY ARTERY: Arises from the right sinus of Valsalva. This is a nondominant vessel. Ther e are mild luminal irregularities in this vessel. LEFT VENTRICLE: Left ventricular systolic function is mildly reduced. There is mild anterolateral h ypokinesis. Left ventricular ejection fraction is 40-45%. 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 Successful percutaneous coronary intervention of the left ante rior descending artery with a Xience drug-eluting stent (culprit vessel). PLAN: This patient will be admitted to the intensive care unit. Antiplatelet therapy will be contin ued with aspirin and Brilinta. Percutaneous intervention of the left AV groove artery will be perfor med at a later date. Kevin Barnes MD cc: [id number] TT: 11/24/2016 13:01:53 mn
== END 2016-11-23 09:04 | disposition short-term general hospital (02) | DRG 247 ==
LOC: C.ER 21:40 → C.9E 22:41 → C.6T 23:09 → C.9E 23:09 → C.9I 23:50
PROVIDERS: ADMIT Internal Medicine Nephrology; ATTEND Internal Medicine Nephrology
PROC: 027034Z Dilation of Coronary Artery, One Artery with Drug-eluting Intraluminal Device, Percutaneous Approach (ICD-10-PCS; principal; 2016-11-17)
PROC: 4A023N7 Measurement of Cardiac Sampling and Pressure, Left Heart, Percutaneous Approach (ICD-10-PCS; 2016-11-17)
PROC: B2151ZZ Fluoroscopy of Left Heart using Low Osmolar Contrast (ICD-10-PCS; 2016-11-17)
PROC: B2111ZZ Fluoroscopy of Multiple Coronary Arteries using Low Osmolar Contrast (ICD-10-PCS; 2016-11-17)
DX: I21.02 ST elevation (STEMI) myocardial infarction involving left anterior descending coronary artery (principal); I47.2 Ventricular tachycardia; K76.0 Fatty (change of) liver, not elsewhere classified; I48.91 Unspecified atrial fibrillation; I25.10 Atherosclerotic heart disease of native coronary artery without angina pectoris; E11.65 Type 2 diabetes mellitus with hyperglycemia; I10 Essential (primary) hypertension; E78.5 Hyperlipidemia, unspecified; Z79.01 Long term (current) use of anticoagulants; Z79.82 Long term (current) use of aspirin; Z82.49 Family history of ischemic heart disease and other diseases of the circulatory system; Z90.49 Acquired absence of other specified parts of digestive tract